=== PATIENT | female | born 1950 | race Caucasian/White ===

== ENCOUNTER 2018-10-20 05:48 | Inpatient (IN) ==
[2018-10-20] MEDS ORDERED: LIDOCAINE 1% 5 ML VIAL ONE (05:53)
[2018-10-20] MEDS ORDERED: ROPIVACAINE 0.5% 30 ML VIAL ONE (05:53)
[2018-10-20] MEDS ORDERED: BUPIVACAINE SPINAL 0.75% 2 ML AMP SPINAL ONE (05:53)
[2018-10-20] MEDS ORDERED: VANCOMYCIN 1,000 MG VIAL ONE (06:14)
[2018-10-20] MEDS ORDERED: ceFAZolin 1,000 MG VIAL ONE (06:14)
[2018-10-20] MEDS ORDERED: GABAPENTIN 400 MG CAPSULE PO ONE (06:25)
[2018-10-20] MEDS ORDERED: ACETAMINOPHEN 500 MG TABLET PO ONE (06:25)
[2018-10-20] MEDS ORDERED: ceFAZolin 1,000 MG in SYRINGE 1 EACH IV ONE (06:30)
[2018-10-20] MEDS ORDERED: VANCOMYCIN INJ 1,000 MG in SODIUM CHLORIDE 0.9% 250 ML IV ONE (06:30)
[2018-10-20] MEDS ORDERED: LACTATED RINGERS 1,000 ML IV SCH (07:00)
[2018-10-20] MEDS ORDERED: MAGNESIUM HYDROXIDE SUSP 30 ML UDCUP PO PRN (07:37)
[2018-10-20] MEDS ORDERED: MORPHINE 4 MG/1 ML VIAL IV PRN ×2 (07:37)
[2018-10-20] MEDS ORDERED: oxyCODONE IR 5 MG TABLET PO PRN ×2 (07:37)
[2018-10-20] MEDS ORDERED: ONDANSETRON 4 MG/2 ML VIAL IV PRN (07:37)
[2018-10-20] MEDS ORDERED: diphenhydrAMINE CAP 25 MG CAPSULE PO PRN (07:37)
[2018-10-20] MEDS ORDERED: GLUCAGON 1 MG VIAL IM PRN (07:39)
[2018-10-20] MEDS ORDERED: DEXTROSE 50% 25 GM/50 ML VIAL IV PRN (07:39)
[2018-10-20] MEDS ORDERED: BACITRACIN OINT 0.9 GM PACK TOP ONE (08:16)
[2018-10-20] MEDS ORDERED: PROPOFOL 200 MG/20 ML VIAL IV ONE (08:58)
[2018-10-20] MEDS ORDERED: PHENYLEPHRINE DRIP 20 MG/250 ML PREMIX IV ONE (08:58)
[2018-10-20] MEDS ORDERED: MIDAZOLAM 2 MG/2 ML VIAL ONE (08:58)
[2018-10-20] MEDS ORDERED: TRANEXAMIC ACID 1,000 MG/10 ML VIAL ONE (08:59)
[2018-10-20] MEDS ORDERED: ePHEDrine 50 MG/ML AMP ONE (08:59)
[2018-10-20] MEDS ORDERED: PHENYLEPHRINE 10 MG/1 ML VIAL IV ONE (08:59)
[2018-10-20] MEDS ORDERED: PROPOFOL 500 MG/50 ML BOTTLE IV ONE (08:59)
[2018-10-20] MEDS ORDERED: SODIUM CHLORIDE 0.9% 100 ML IV ONE (08:59)
[2018-10-20] MEDS: LACTATED RINGERS 1,000 ML IV SCH ×2 (12:50→21:16)
[2018-10-20] MEDS: ceFAZolin 2,000 MG in PREMIX 1 EACH IV SCH ×2 (12:51→22:52)
[2018-10-20] MEDS: KETOROLAC 30 MG/1 ML VIAL IV SCH ×3 (12:52→23:24)
[2018-10-20] MEDS: MULTIVITAMIN (CENTRUM) TABLET PO SCH (12:58)
[2018-10-20] MEDS: LEVOTHYROXINE 100 MCG TABLET PO SCH (12:59)
[2018-10-20] MEDS: PREGABALIN 50 MG CAPSULE PO SCH (12:59)
[2018-10-20] MEDS: FERROUS SULFATE 325 MG TABLET PO SCH (12:59)
[2018-10-20] MEDS: DOCUSATE SODIUM 100 MG CAPSULE PO SCH ×2 (12:59→21:14)
[2018-10-20] MEDS: ACETAMINOPHEN 500 MG TABLET PO SCH ×3 (13:00→23:24)
[2018-10-20] MEDS: CYANOCOBALAMIN 500 MCG TABLET PO SCH (13:00)
[2018-10-20] MEDS: ALLOPURINOL 300 MG TABLET PO SCH (13:00)
[2018-10-20] MEDS: INSULIN LISPRO 100 UNIT/ML SUBCUT SCH ×3 (14:46→21:14)
[2018-10-20] MEDS: GLIMEPIRIDE 4 MG TABLET PO SCH ×2 (18:23→21:15)
[2018-10-20] MEDS: DONEPEZIL 10 MG TABLET PO SCH (21:14)
[2018-10-20] MEDS: SIMVASTATIN 20 MG TABLET PO SCH (21:14)
[2018-10-20] MEDS: MAGNESIUM OXIDE 400 MG TABLET PO SCH (21:14)
[2018-10-20] MEDS: CARVEDILOL 12.5 MG TABLET PO SCH (21:15)
[2018-10-20] MEDS ORDERED: ceFAZolin 2,000 MG in PREMIX 1 EACH IV SCH (23:00)
[2018-10-21] MEDS: LACTATED RINGERS 1,000 ML IV SCH ×2 (02:11→05:06)
[2018-10-21] MEDS: KETOROLAC 30 MG/1 ML VIAL IV SCH (05:03)
[2018-10-21] MEDS: ACETAMINOPHEN 500 MG TABLET PO SCH (05:03)
[2018-10-21 05:47] LABS: Basophils % 0.4 % (0.0-0.8); Eosinophils # 0.2 10*3/uL (0.0-0.87); Eosinophils % 2.8 % (0.00-10.9); Hematocrit 35.9 VOL% (35.7-47.0); Hemoglobin 11.3 GM/DL (12.0-16.0); Immature Granulocytes % 0.3 %; Immature Granulocytes Absolute 0.02 #; Lymphocytes # 1.3 10*3/uL (1.4-4.0); Mean Corpuscular HGB Conc 31.5 GM/DL (32-36); Mean Corpuscular Hemoglobin 29 PG (27-34); Mean Platelet Volume 11.4 FL (9.6-12.0); Monocytes # 0.8 10*3/uL (0.11-0.8); Monocytes % 9.6 % (1.7-12.7); Neutrophils # 5.5 10*3/uL (1.4-7.4); Neutrophils % 69.9 % (38.7-73.9); Platelet Count 127 T/CUMM (130-400); Red Blood Count 3.86 MC/CUMM (3.8-5.5); Red Cell Distribution Width 13.8 % (9.3-17.3); White Blood Count 7.8 T/CUMM (4-12)
[2018-10-21 06:18] LABS: Calcium 8.4 MG/DL (8.5-10.1); Osmolality,Calculated 290.8 MOS/KG (273-304); Osmolality,Calculated 292.8 MOS/KG (273-304); Potassium 4.4 MMOL/L (3.5-5.1); Potassium 4.5 MMOL/L (3.5-5.1)
[2018-10-21] MEDS: INSULIN LISPRO 100 UNIT/ML SUBCUT SCH ×4 (08:05→21:57)
[2018-10-21] MEDS ORDERED: LIRAGLUTIDE SQ SCH (09:00)
[2018-10-21] MEDS ORDERED: NON-FORMULARY MEDICATION (Canagliflozin [Invokana] 100 MG) PO SCH (09:00)
[2018-10-21] MEDS ORDERED: hydrALAZINE 20 MG/1 ML VIAL IV PRN (09:04)
[2018-10-21] MEDS: LEVOTHYROXINE 100 MCG TABLET PO SCH (10:09)
[2018-10-21] MEDS: MULTIVITAMIN (CENTRUM) TABLET PO SCH (10:09)
[2018-10-21] MEDS: MAGNESIUM OXIDE 400 MG TABLET PO SCH ×2 (10:09→21:55)
[2018-10-21] MEDS: CARVEDILOL 12.5 MG TABLET PO SCH ×2 (10:09→21:56)
[2018-10-21] MEDS: CYANOCOBALAMIN 500 MCG TABLET PO SCH (10:09)
[2018-10-21] MEDS: GLIMEPIRIDE 4 MG TABLET PO SCH ×2 (10:10→21:56)
[2018-10-21] MEDS: FERROUS SULFATE 325 MG TABLET PO SCH (10:10)
[2018-10-21] MEDS: amLODIPine 5 MG TABLET PO SCH (10:10)
[2018-10-21] MEDS: APIXABAN 2.5 MG TABLET PO SCH ×2 (10:10→21:56)
[2018-10-21] MEDS: DOCUSATE SODIUM 100 MG CAPSULE PO SCH ×2 (10:11→21:56)
[2018-10-21] MEDS: PREGABALIN 50 MG CAPSULE PO SCH (10:12)
[2018-10-21] MEDS: AMIODARONE 200 MG TABLET PO SCH (10:13)
[2018-10-21] MEDS: ALLOPURINOL 300 MG TABLET PO SCH (10:13)
[2018-10-21] MEDS: CELECOXIB 200 MG CAPSULE PO SCH (12:56)
[2018-10-21] MEDS: SIMVASTATIN 20 MG TABLET PO SCH (21:55)
[2018-10-21] MEDS: DONEPEZIL 10 MG TABLET PO SCH (21:56)
[2018-10-22] MEDS ORDERED: ACETAMINOPHEN 325 MG TABLET PO PRN (04:14)
[2018-10-22 05:08] LABS: Basophils % 0.4 % (0.0-0.8); Eosinophils # 0.4 10*3/uL (0.0-0.87); Eosinophils % 4.2 % (0.00-10.9); Hematocrit 36.3 VOL% (35.7-47.0); Hemoglobin 12.9 GM/DL (12.0-16.0); Immature Granulocytes % 0.5 %; Immature Granulocytes Absolute 0.04 #; Lymphocytes # 1.5 10*3/uL (1.4-4.0); Lymphocytes % 17.7 % (21.3-54.2); Mean Corpuscular HGB Conc 35.5 GM/DL (32-36); Mean Corpuscular Hemoglobin 33 PG (27-34); Mean Corpuscular Volume 93.1 FL (87-102); Mean Platelet Volume 11.1 FL (9.6-12.0); Monocytes # 0.8 10*3/uL (0.11-0.8); Monocytes % 9.7 % (1.7-12.7); Neutrophils # 5.7 10*3/uL (1.4-7.4); Neutrophils % 67.5 % (38.7-73.9); Platelet Count 115 T/CUMM (130-400); White Blood Count 8.5 T/CUMM (4-12)
[2018-10-22] MEDS: DOCUSATE SODIUM 100 MG CAPSULE PO SCH ×2 (09:32→21:08)
[2018-10-22] MEDS: CYANOCOBALAMIN 500 MCG TABLET PO SCH (09:32)
[2018-10-22] MEDS: FERROUS SULFATE 325 MG TABLET PO SCH (09:32)
[2018-10-22] MEDS: APIXABAN 2.5 MG TABLET PO SCH ×2 (09:33→21:08)
[2018-10-22] MEDS: MAGNESIUM OXIDE 400 MG TABLET PO SCH ×2 (09:33→21:06)
[2018-10-22] MEDS: CELECOXIB 200 MG CAPSULE PO SCH (09:33)
[2018-10-22] MEDS: ALLOPURINOL 300 MG TABLET PO SCH (09:33)
[2018-10-22] MEDS: amLODIPine 5 MG TABLET PO SCH (09:33)
[2018-10-22] MEDS: PREGABALIN 50 MG CAPSULE PO SCH (09:33)
[2018-10-22] MEDS: LEVOTHYROXINE 100 MCG TABLET PO SCH (09:33)
[2018-10-22] MEDS: CARVEDILOL 12.5 MG TABLET PO SCH ×2 (09:33→21:08)
[2018-10-22] MEDS: GLIMEPIRIDE 4 MG TABLET PO SCH ×2 (09:33→21:08)
[2018-10-22] MEDS: MULTIVITAMIN (CENTRUM) TABLET PO SCH (09:33)
[2018-10-22] MEDS: INSULIN LISPRO 100 UNIT/ML SUBCUT SCH ×4 (09:51→22:32)
[2018-10-22] MEDS: DONEPEZIL 10 MG TABLET PO SCH (21:06)
[2018-10-22] MEDS: SIMVASTATIN 20 MG TABLET PO SCH (21:06)
[2018-10-23] MEDS: INSULIN LISPRO 100 UNIT/ML SUBCUT SCH ×2 (10:36→13:08)
[2018-10-23] MEDS: PREGABALIN 50 MG CAPSULE PO SCH (10:58)
[2018-10-23] MEDS: CYANOCOBALAMIN 500 MCG TABLET PO SCH (10:59)
[2018-10-23] MEDS: APIXABAN 2.5 MG TABLET PO SCH (10:59)
[2018-10-23] MEDS: MULTIVITAMIN (CENTRUM) TABLET PO SCH (11:01)
[2018-10-23] MEDS: FERROUS SULFATE 325 MG TABLET PO SCH (11:01)
[2018-10-23] MEDS: MAGNESIUM OXIDE 400 MG TABLET PO SCH (11:01)
[2018-10-23] MEDS: AMIODARONE 200 MG TABLET PO SCH (11:02)
[2018-10-23] MEDS: amLODIPine 5 MG TABLET PO SCH (11:02)
[2018-10-23] MEDS: CELECOXIB 200 MG CAPSULE PO SCH (11:03)
[2018-10-23] MEDS: CARVEDILOL 12.5 MG TABLET PO SCH (11:03)
[2018-10-23] MEDS: ALLOPURINOL 300 MG TABLET PO SCH (11:03)
[2018-10-23] MEDS: LEVOTHYROXINE 100 MCG TABLET PO SCH (11:03)
[2018-10-23] MEDS: GLIMEPIRIDE 4 MG TABLET PO SCH (11:03)
[2018-10-23 12:16] VITALS: BP 142/72
[2018-10-23] MEDS: DOCUSATE SODIUM 100 MG CAPSULE PO SCH (12:28)
== END 2018-10-23 15:53 | disposition home or self-care (01) | DRG 470 ==
LOC: N.OR 05:48 → N.SDSINP 05:49 → N.3E 08:50
PROVIDERS: ADMIT Orthopaedic Surgery; ATTEND Orthopaedic Surgery

== ENCOUNTER 2019-09-16 18:14 | Inpatient (IN) ==
[2019-09-16] MEDS ORDERED: FUROSEMIDE 100 MG/10 ML VIAL IV STA (19:31)
[2019-09-16 19:57] LABS: Basophils % 0.4 % (0.0-0.8); Eosinophils # 0.2 10*3/uL (0.0-0.87); Eosinophils % 2.4 % (0.00-10.9); Hemoglobin 11.8 GM/DL (12.0-16.0); Immature Granulocytes % 0.6 %; Immature Granulocytes Absolute 0.05 #; Lymphocytes # 1.1 10*3/uL (1.4-4.0); Lymphocytes % 13.1 % (21.3-54.2); Mean Corpuscular HGB Conc 30.3 GM/DL (32-36); Mean Corpuscular Volume 101.6 FL (87-102); Mean Platelet Volume 10.5 FL (9.6-12.0); Monocytes % 5.6 % (1.7-12.7); Neutrophils % 77.9 % (38.7-73.9); Platelet Count 153 T/CUMM (130-400); Red Blood Count 3.84 MC/CUMM (3.8-5.5); Red Cell Distribution Width 15.9 % (9.3-17.3); White Blood Count 8.1 T/CUMM (4-12)
[2019-09-16 20:02] LABS: Albumin 3.1 G/DL (3.4-5.0); Bilirubin,Total 0.9 MG/DL (0.2-1.0); Calcium 10.2 MG/DL (8.5-10.1); Osmolality,Calculated 304.6 MOS/KG (273-304); Total Protein 7.3 G/DL (6.4-8.3)
[2019-09-16] MEDS ORDERED: GLUCAGON 1 MG VIAL IM PRN (22:22)
[2019-09-16] MEDS ORDERED: DEXTROSE 50% 25 GM/50 ML VIAL IV PRN (22:22)
[2019-09-17] MEDS: INSULIN GLARGINE 100 UNIT/ML SUBCUT SCH ×2 (01:00→21:53)
[2019-09-17] MEDS: cycloSPORINE OPH EMUL 1 VIAL BOTH EYES SCH ×3 (01:00→22:05)
[2019-09-17] MEDS: INSULIN REGULAR 100 UNIT/ML SUBCUT SCH ×5 (01:00→21:54)
[2019-09-17 03:04] LABS: Apearance,Urine CLEAR (Clear); Bilirubin,Urine Negative (Negative); Blood, Urine Negative (Negative); Glucose,Urine (UA) Negative (Negative); Ketones,Urine Negative (Negative); Nitrite,Urine Negative (Negative); Protein,Urine 30 MG/DL; RBC,Urine 1 /HPF (0-4); Urine Color Colorless (Yellow); Urine Specific Gravity 1.005 (1.001-1.035); Urine Urobilinogen < 2.0 EU/DL (0.2-1.0); WBC,Urine <1 /HPF (0-6)
[2019-09-17 05:30] LABS: Calcium 10.1 MG/DL (8.5-10.1); Osmolality,Calculated 298.6 MOS/KG (273-304)
[2019-09-17] MEDS: LEVOTHYROXINE 100 MCG TABLET PO SCH (06:47)
[2019-09-17] MEDS ORDERED: MAGNESIUM SULF RIDER 4 GM in PREMIX 1 EACH IV PRN (07:30)
[2019-09-17] MEDS ORDERED: MAGNESIUM SULF RIDER 2 GM in PREMIX 1 EACH IV PRN (07:30)
[2019-09-17] MEDS: GLIMEPIRIDE 4 MG TABLET PO SCH ×2 (08:20→16:12)
[2019-09-17] MEDS ORDERED: TORSEMIDE 20 MG TABLET PO SCH (09:00)
[2019-09-17] MEDS ORDERED: AMIODARONE 200 MG TABLET PO SCH (09:00)
[2019-09-17] MEDS ORDERED: PREDNISOLONE ACETATE RIGHT EYE SCH (09:00)
[2019-09-17] MEDS: traMADol 50 MG TABLET PO SCH (09:05)
[2019-09-17] MEDS: MULTIVITAMIN (CENTRUM) TABLET PO SCH (09:05)
[2019-09-17] MEDS: PREGABALIN 75 MG CAPSULE PO SCH (09:05)
[2019-09-17] MEDS: MAGNESIUM OXIDE 400 MG TABLET PO SCH ×2 (09:05→21:53)
[2019-09-17] MEDS: AMIODARONE 200 MG TABLET PO SCH (09:06)
[2019-09-17] MEDS: predniSONE 5 MG TABLET PO SCH (09:07)
[2019-09-17] MEDS: carvediloL 12.5 MG TABLET PO SCH ×2 (09:07→16:12)
[2019-09-17] MEDS: APIXABAN 5 MG TABLET PO SCH ×2 (09:07→21:53)
[2019-09-17] MEDS: amLODIPine 5 MG TABLET PO SCH (09:08)
[2019-09-17] MEDS: FUROSEMIDE 40 MG/4 ML VIAL IV SCH ×2 (09:08→16:12)
[2019-09-17] MEDS: ALLOPURINOL 100 MG TABLET PO SCH (09:08)
[2019-09-17] MEDS: FERROUS SULFATE 325 MG TABLET PO SCH (09:08)
[2019-09-17] MEDS ORDERED: hydrALAZINE 20 MG/1 ML VIAL IV PRN (12:56)
[2019-09-17] MEDS ORDERED: ALBUTEROL/IPRATROPIUM 3 ML NEB RESP TX PRN (12:56)
[2019-09-17] MEDS: PIPERACILLIN/TAZOBACTAM 3,375 MG in SODIUM CHLORIDE 0.9% 100 ML IV SCH ×2 (13:24→21:55)
[2019-09-17] MEDS: methylPREDNISolone SOD SUC 40 MG/1 ML VIAL IV SCH (13:25)
[2019-09-17] MEDS: ALBUTEROL/IPRATROPIUM 3 ML NEB RESP TX SCH ×3 (15:22→23:57)
[2019-09-17] MEDS: DESITIN 4OZ/NYSTATIN 15 GRAM MIXTURE PASTE TOP SCH ×2 (16:12→21:53)
[2019-09-17] MEDS: DONEPEZIL 10 MG TABLET PO SCH (21:53)
[2019-09-17] MEDS: SIMVASTATIN 20 MG TABLET PO SCH (21:53)
[2019-09-18] MEDS: methylPREDNISolone SOD SUC 40 MG/1 ML VIAL IV SCH ×2 (00:19→12:49)
[2019-09-18] MEDS: ALBUTEROL/IPRATROPIUM 3 ML NEB RESP TX SCH ×6 (03:00→23:25)
[2019-09-18 04:40] LABS: Basophils % 0.2 % (0.0-0.8); Hematocrit 38.9 VOL% (35.7-47.0); Hemoglobin 12.4 GM/DL (12.0-16.0); Immature Granulocytes % 0.4 %; Immature Granulocytes Absolute 0.02 #; Lymphocytes # 0.8 10*3/uL (1.4-4.0); Mean Corpuscular HGB Conc 31.9 GM/DL (32-36); Mean Platelet Volume 10.7 FL (9.6-12.0); Monocytes % 0.9 % (1.7-12.7); Neutrophils % 84.5 % (38.7-73.9); Platelet Count 170 T/CUMM (130-400); Red Blood Count 4.01 MC/CUMM (3.8-5.5); Red Cell Distribution Width 15.3 % (9.3-17.3); White Blood Count 5.4 T/CUMM (4-12)
[2019-09-18 05:05] LABS: Calcium 10.3 MG/DL (8.5-10.1); Osmolality,Calculated 295.4 MOS/KG (273-304)
[2019-09-18] MEDS: PIPERACILLIN/TAZOBACTAM 3,375 MG in SODIUM CHLORIDE 0.9% 100 ML IV SCH ×3 (05:45→21:39)
[2019-09-18] MEDS: LEVOTHYROXINE 100 MCG TABLET PO SCH (05:45)
[2019-09-18 05:58] LABS: Anisocytosis Slight; Macrocytosis Slight; Platelet Estimate Normal
[2019-09-18 06:00] LABS: Ovalocytes Slight; Stomatocytes Slight
[2019-09-18] MEDS: carvediloL 12.5 MG TABLET PO SCH (08:11)
[2019-09-18] MEDS: INSULIN REGULAR 100 UNIT/ML SUBCUT SCH ×4 (08:13→21:23)
[2019-09-18] MEDS: GLIMEPIRIDE 4 MG TABLET PO SCH ×2 (08:13→16:55)
[2019-09-18] MEDS ORDERED: NON-FORMULARY MEDICATION RIGHT EYE SCH (09:00)
[2019-09-18] MEDS: AMIODARONE 200 MG TABLET PO SCH (09:19)
[2019-09-18] MEDS: MULTIVITAMIN (CENTRUM) TABLET PO SCH (09:19)
[2019-09-18] MEDS: PREGABALIN 75 MG CAPSULE PO SCH (09:19)
[2019-09-18] MEDS: cycloSPORINE OPH EMUL 1 VIAL BOTH EYES SCH ×2 (09:19→21:25)
[2019-09-18] MEDS: KETOROLAC 0.5% OPH SOLN 5 ML BOTTLE RIGHT EYE SCH (09:20)
[2019-09-18] MEDS: traMADol 50 MG TABLET PO SCH (09:20)
[2019-09-18] MEDS: DESITIN 4OZ/NYSTATIN 15 GRAM MIXTURE PASTE TOP SCH ×2 (09:20→21:24)
[2019-09-18] MEDS: ALLOPURINOL 100 MG TABLET PO SCH (09:20)
[2019-09-18] MEDS: OFLOXACIN 0.3% OPH SOLN 5 ML BOTTLE RIGHT EYE SCH (09:20)
[2019-09-18] MEDS: MAGNESIUM OXIDE 400 MG TABLET PO SCH ×2 (09:20→21:23)
[2019-09-18] MEDS: prednisoLONE ACETATE 1% OPH SUSP 5 ML BOTTLE LEFT EYE SCH ×3 (09:20→16:08)
[2019-09-18] MEDS: FERROUS SULFATE 325 MG TABLET PO SCH (09:21)
[2019-09-18] MEDS: predniSONE 5 MG TABLET PO SCH (09:21)
[2019-09-18] MEDS: amLODIPine 5 MG TABLET PO SCH (09:21)
[2019-09-18] MEDS: APIXABAN 5 MG TABLET PO SCH ×2 (09:21→21:23)
[2019-09-18] MEDS: FUROSEMIDE 40 MG/4 ML VIAL IV SCH (09:22)
[2019-09-18] MEDS ORDERED: prednisoLONE ACETATE 1% OPH SUSP 5 ML BOTTLE RIGHT EYE SCH (13:00)
[2019-09-18] MEDS: carvediloL 6.25 MG TABLET PO SCH (16:55)
[2019-09-18] MEDS: DONEPEZIL 10 MG TABLET PO SCH (21:23)
[2019-09-18] MEDS: SIMVASTATIN 20 MG TABLET PO SCH (21:23)
[2019-09-18] MEDS: INSULIN GLARGINE 100 UNIT/ML SUBCUT SCH (21:24)
[2019-09-19] MEDS: methylPREDNISolone SOD SUC 40 MG/1 ML VIAL IV SCH ×2 (00:56→12:16)
[2019-09-19] MEDS: ALBUTEROL/IPRATROPIUM 3 ML NEB RESP TX SCH ×6 (02:51→23:13)
[2019-09-19 04:43] LABS: Hematocrit 35.5 VOL% (35.7-47.0); Hemoglobin 11.5 GM/DL (12.0-16.0); Immature Granulocytes % 0.6 %; Immature Granulocytes Absolute 0.04 #; Lymphocytes # 0.7 10*3/uL (1.4-4.0); Lymphocytes % 9.3 % (21.3-54.2); Mean Corpuscular HGB Conc 32.4 GM/DL (32-36); Mean Corpuscular Volume 95.7 FL (87-102); Mean Platelet Volume 10.8 FL (9.6-12.0); Monocytes % 1.7 % (1.7-12.7); Neutrophils % 88.4 % (38.7-73.9); Platelet Count 178 T/CUMM (130-400); Red Blood Count 3.71 MC/CUMM (3.8-5.5)
[2019-09-19 04:58] LABS: Calcium 10.2 MG/DL (8.5-10.1); Osmolality,Calculated 294.7 MOS/KG (273-304)
[2019-09-19] MEDS: PIPERACILLIN/TAZOBACTAM 3,375 MG in SODIUM CHLORIDE 0.9% 100 ML IV SCH ×3 (05:10→20:50)
[2019-09-19] MEDS: LEVOTHYROXINE 112 MCG TABLET PO SCH (05:10)
[2019-09-19 07:17] LABS: Lymphocytes 8 % (20-55); Platelet Estimate Adequate; Polychromasia Slight; Segmented Neutrophils 92 % (50-85); Total Cells Counted 100
[2019-09-19 07:19] LABS: Macrocytosis Slight; Stomatocytes Slight
[2019-09-19 07:20] LABS: Ovalocytes Few
[2019-09-19 07:22] LABS: Spherocytes Few
[2019-09-19] MEDS: INSULIN REGULAR 100 UNIT/ML SUBCUT SCH ×4 (08:36→20:51)
[2019-09-19] MEDS: GLIMEPIRIDE 4 MG TABLET PO SCH ×2 (08:36→16:03)
[2019-09-19] MEDS: carvediloL 6.25 MG TABLET PO SCH (08:42)
[2019-09-19] MEDS ORDERED: FUROSEMIDE 40 MG/4 ML VIAL IV SCH (09:00)
[2019-09-19] MEDS: AMIODARONE 200 MG TABLET PO SCH (09:48)
[2019-09-19] MEDS: cycloSPORINE OPH EMUL 1 VIAL BOTH EYES SCH ×2 (09:48→20:49)
[2019-09-19] MEDS: prednisoLONE ACETATE 1% OPH SUSP 5 ML BOTTLE RIGHT EYE SCH (09:48)
[2019-09-19] MEDS: MAGNESIUM OXIDE 400 MG TABLET PO SCH ×2 (09:49→20:47)
[2019-09-19] MEDS: ALLOPURINOL 100 MG TABLET PO SCH (09:49)
[2019-09-19] MEDS: FERROUS SULFATE 325 MG TABLET PO SCH (09:49)
[2019-09-19] MEDS: carvediloL 3.125 MG TABLET PO SCH ×3 (09:50→20:47)
[2019-09-19] MEDS: MULTIVITAMIN (CENTRUM) TABLET PO SCH (09:50)
[2019-09-19] MEDS: amLODIPine 5 MG TABLET PO SCH (09:50)
[2019-09-19] MEDS: predniSONE 5 MG TABLET PO SCH (09:50)
[2019-09-19] MEDS: APIXABAN 5 MG TABLET PO SCH ×2 (09:50→20:47)
[2019-09-19] MEDS: traMADol 50 MG TABLET PO SCH (09:50)
[2019-09-19] MEDS: PREGABALIN 75 MG CAPSULE PO SCH (09:50)
[2019-09-19] MEDS: KETOROLAC 0.5% OPH SOLN 5 ML BOTTLE RIGHT EYE SCH (09:51)
[2019-09-19] MEDS: DESITIN 4OZ/NYSTATIN 15 GRAM MIXTURE PASTE TOP SCH ×2 (09:52→20:49)
[2019-09-19] MEDS: OFLOXACIN 0.3% OPH SOLN 5 ML BOTTLE RIGHT EYE SCH (09:52)
[2019-09-19] MEDS: DOCUSATE SODIUM 100 MG CAPSULE PO SCH ×2 (12:30→20:47)
[2019-09-19] MEDS: FUROSEMIDE 40 MG TABLET PO SCH (16:03)
[2019-09-19] MEDS: SIMVASTATIN 20 MG TABLET PO SCH (20:46)
[2019-09-19] MEDS: DONEPEZIL 10 MG TABLET PO SCH (20:47)
[2019-09-19] MEDS: EYE DROPS RIGHT EYE SCH (20:51)
[2019-09-19] MEDS: INSULIN GLARGINE 100 UNIT/ML SUBCUT SCH (20:52)
[2019-09-20] MEDS: methylPREDNISolone SOD SUC 40 MG/1 ML VIAL IV SCH ×2 (00:44→13:01)
[2019-09-20] MEDS: ALBUTEROL/IPRATROPIUM 3 ML NEB RESP TX SCH ×5 (03:51→20:25)
[2019-09-20 04:41] LABS: Hematocrit 35.5 VOL% (35.7-47.0); Hemoglobin 11.2 GM/DL (12.0-16.0); Immature Granulocytes % 0.3 %; Immature Granulocytes Absolute 0.02 #; Lymphocytes # 0.8 10*3/uL (1.4-4.0); Lymphocytes % 10.5 % (21.3-54.2); Mean Corpuscular HGB Conc 31.5 GM/DL (32-36); Mean Corpuscular Volume 96.7 FL (87-102); Mean Platelet Volume 10.7 FL (9.6-12.0); Neutrophils % 86.2 % (38.7-73.9); Platelet Count 169 T/CUMM (130-400); Red Blood Count 3.67 MC/CUMM (3.8-5.5); Red Cell Distribution Width 15.1 % (9.3-17.3); White Blood Count 7.5 T/CUMM (4-12)
[2019-09-20 04:57] LABS: Calcium 10.3 MG/DL (8.5-10.1); Osmolality,Calculated 302.3 MOS/KG (273-304)
[2019-09-20] MEDS: PIPERACILLIN/TAZOBACTAM 3,375 MG in SODIUM CHLORIDE 0.9% 100 ML IV SCH ×3 (05:11→21:00)
[2019-09-20] MEDS: LEVOTHYROXINE 112 MCG TABLET PO SCH (05:11)
[2019-09-20] MEDS: AMIODARONE 200 MG TABLET PO SCH (08:17)
[2019-09-20] MEDS: GLIMEPIRIDE 4 MG TABLET PO SCH ×2 (08:17→15:39)
[2019-09-20] MEDS: FERROUS SULFATE 325 MG TABLET PO SCH (08:17)
[2019-09-20] MEDS: MAGNESIUM OXIDE 400 MG TABLET PO SCH ×2 (08:17→21:00)
[2019-09-20] MEDS: MULTIVITAMIN (CENTRUM) TABLET PO SCH (08:18)
[2019-09-20] MEDS: ALLOPURINOL 100 MG TABLET PO SCH (08:18)
[2019-09-20] MEDS: PREGABALIN 75 MG CAPSULE PO SCH (08:18)
[2019-09-20] MEDS: amLODIPine 5 MG TABLET PO SCH (08:18)
[2019-09-20] MEDS: DOCUSATE SODIUM 100 MG CAPSULE PO SCH ×2 (08:18→21:00)
[2019-09-20] MEDS: APIXABAN 5 MG TABLET PO SCH ×2 (08:18→21:00)
[2019-09-20] MEDS: carvediloL 3.125 MG TABLET PO SCH ×2 (08:18→21:00)
[2019-09-20] MEDS: FUROSEMIDE 40 MG TABLET PO SCH (08:19)
[2019-09-20] MEDS: INSULIN REGULAR 100 UNIT/ML SUBCUT SCH ×4 (08:19→21:01)
[2019-09-20] MEDS: KETOROLAC 0.5% OPH SOLN 5 ML BOTTLE RIGHT EYE SCH (08:20)
[2019-09-20] MEDS: OFLOXACIN 0.3% OPH SOLN 5 ML BOTTLE RIGHT EYE SCH (08:21)
[2019-09-20] MEDS: predniSONE 5 MG TABLET PO SCH (08:21)
[2019-09-20] MEDS: DESITIN 4OZ/NYSTATIN 15 GRAM MIXTURE PASTE TOP SCH ×2 (08:22→21:08)
[2019-09-20] MEDS: EYE DROPS RIGHT EYE SCH ×2 (08:22→21:09)
[2019-09-20] MEDS: traMADol 50 MG TABLET PO SCH (08:22)
[2019-09-20] MEDS: cycloSPORINE OPH EMUL 1 VIAL BOTH EYES SCH ×2 (08:22→21:00)
[2019-09-20] MEDS: prednisoLONE ACETATE 1% OPH SUSP 5 ML BOTTLE RIGHT EYE SCH (08:22)
[2019-09-20] MEDS ORDERED: OFLOXACIN 0.3% OPH SOLN 5 ML BOTTLE RIGHT EYE SCH (09:00)
[2019-09-20] MEDS ORDERED: KETOROLAC RIGHT EYE SCH (09:00)
[2019-09-20] MEDS: FUROSEMIDE 20 MG TABLET PO SCH (15:39)
[2019-09-20] MEDS: DONEPEZIL 10 MG TABLET PO SCH (21:00)
[2019-09-20] MEDS: SIMVASTATIN 20 MG TABLET PO SCH (21:00)
[2019-09-20] MEDS: INSULIN GLARGINE 100 UNIT/ML SUBCUT SCH (21:01)
[2019-09-21] MEDS: ALBUTEROL/IPRATROPIUM 3 ML NEB RESP TX SCH ×6 (00:08→20:29)
[2019-09-21] MEDS: methylPREDNISolone SOD SUC 40 MG/1 ML VIAL IV SCH (01:02)
[2019-09-21 03:54] LABS: Hematocrit 35.5 VOL% (35.7-47.0); Hemoglobin 11.2 GM/DL (12.0-16.0); Immature Granulocytes % 0.6 %; Immature Granulocytes Absolute 0.04 #; Lymphocytes # 0.8 10*3/uL (1.4-4.0); Lymphocytes % 12.4 % (21.3-54.2); Mean Corpuscular HGB Conc 31.5 GM/DL (32-36); Mean Corpuscular Volume 96.5 FL (87-102); Monocytes % 6.3 % (1.7-12.7); Neutrophils % 80.7 % (38.7-73.9); Platelet Count 169 T/CUMM (130-400); Red Blood Count 3.68 MC/CUMM (3.8-5.5); Red Cell Distribution Width 15.5 % (9.3-17.3); White Blood Count 6.6 T/CUMM (4-12)
[2019-09-21 04:25] LABS: Calcium 10.1 MG/DL (8.5-10.1); Osmolality,Calculated 304.4 MOS/KG (273-304)
[2019-09-21] MEDS: PIPERACILLIN/TAZOBACTAM 3,375 MG in SODIUM CHLORIDE 0.9% 100 ML IV SCH ×3 (05:11→21:49)
[2019-09-21] MEDS: LEVOTHYROXINE 112 MCG TABLET PO SCH (05:12)
[2019-09-21] MEDS: MULTIVITAMIN (CENTRUM) TABLET PO SCH (08:59)
[2019-09-21] MEDS: GLIMEPIRIDE 4 MG TABLET PO SCH ×2 (09:02→17:26)
[2019-09-21] MEDS: MAGNESIUM OXIDE 400 MG TABLET PO SCH ×2 (09:02→21:54)
[2019-09-21] MEDS: AMIODARONE 200 MG TABLET PO SCH (09:03)
[2019-09-21] MEDS: traMADol 50 MG TABLET PO SCH (09:03)
[2019-09-21] MEDS: ALLOPURINOL 100 MG TABLET PO SCH (09:03)
[2019-09-21] MEDS: FERROUS SULFATE 325 MG TABLET PO SCH (09:04)
[2019-09-21] MEDS: amLODIPine 5 MG TABLET PO SCH (09:04)
[2019-09-21] MEDS: predniSONE 5 MG TABLET PO SCH (09:04)
[2019-09-21] MEDS: DOCUSATE SODIUM 100 MG CAPSULE PO SCH ×2 (09:04→21:53)
[2019-09-21] MEDS: FUROSEMIDE 20 MG TABLET PO SCH ×2 (09:04→17:27)
[2019-09-21] MEDS: PREGABALIN 75 MG CAPSULE PO SCH (09:04)
[2019-09-21] MEDS: APIXABAN 5 MG TABLET PO SCH ×2 (09:05→21:54)
[2019-09-21] MEDS: carvediloL 3.125 MG TABLET PO SCH ×2 (09:05→21:53)
[2019-09-21] MEDS: OFLOXACIN 0.3% OPH SOLN 5 ML BOTTLE RIGHT EYE SCH (09:06)
[2019-09-21] MEDS: KETOROLAC 0.5% OPH SOLN 5 ML BOTTLE RIGHT EYE SCH (09:06)
[2019-09-21] MEDS: prednisoLONE ACETATE 1% OPH SUSP 5 ML BOTTLE RIGHT EYE SCH (09:06)
[2019-09-21] MEDS: cycloSPORINE OPH EMUL 1 VIAL BOTH EYES SCH ×2 (09:07→21:54)
[2019-09-21] MEDS: DESITIN 4OZ/NYSTATIN 15 GRAM MIXTURE PASTE TOP SCH ×2 (09:07→21:54)
[2019-09-21] MEDS: EYE DROPS RIGHT EYE SCH ×2 (09:08→21:54)
[2019-09-21] MEDS: INSULIN REGULAR 100 UNIT/ML SUBCUT SCH ×4 (09:56→21:52)
[2019-09-21] MEDS ORDERED: guaiFENesin 200 MG/10 ML UDCUP PO PRN (12:09)
[2019-09-21] MEDS: INSULIN GLARGINE 100 UNIT/ML SUBCUT SCH (21:52)
[2019-09-21] MEDS: SIMVASTATIN 20 MG TABLET PO SCH (21:54)
[2019-09-21] MEDS: DONEPEZIL 10 MG TABLET PO SCH (21:54)
[2019-09-22] MEDS: ALBUTEROL/IPRATROPIUM 3 ML NEB RESP TX SCH ×5 (00:37→16:03)
[2019-09-22] MEDS: LEVOTHYROXINE 112 MCG TABLET PO SCH (05:29)
[2019-09-22] MEDS: PIPERACILLIN/TAZOBACTAM 3,375 MG in SODIUM CHLORIDE 0.9% 100 ML IV SCH ×2 (05:30→13:16)
[2019-09-22 06:19] LABS: Basophils % 0.3 % (0.0-0.8); Eosinophils # 0.1 10*3/uL (0.0-0.87); Eosinophils % 1.7 % (0.00-10.9); Hematocrit 40.1 VOL% (35.7-47.0); Hemoglobin 12.5 GM/DL (12.0-16.0); Immature Granulocytes Absolute 0.07 #; Lymphocytes # 1.5 10*3/uL (1.4-4.0); Lymphocytes % 20.7 % (21.3-54.2); Mean Corpuscular HGB Conc 31.2 GM/DL (32-36); Mean Corpuscular Volume 98.3 FL (87-102); Mean Platelet Volume 10.5 FL (9.6-12.0); Monocytes % 11.1 % (1.7-12.7); Neutrophils % 65.2 % (38.7-73.9); Platelet Count 160 T/CUMM (130-400); Red Blood Count 4.08 MC/CUMM (3.8-5.5); Red Cell Distribution Width 15.9 % (9.3-17.3)
[2019-09-22 07:04] LABS: Calcium 10.7 MG/DL (8.5-10.1); Osmolality,Calculated 304.7 MOS/KG (273-304)
[2019-09-22] MEDS: INSULIN REGULAR 100 UNIT/ML SUBCUT SCH ×3 (08:18→17:04)
[2019-09-22] MEDS: predniSONE 5 MG TABLET PO SCH (08:32)
[2019-09-22] MEDS: AMIODARONE 200 MG TABLET PO SCH (08:33)
[2019-09-22] MEDS: DOCUSATE SODIUM 100 MG CAPSULE PO SCH (08:33)
[2019-09-22] MEDS: traMADol 50 MG TABLET PO SCH (08:33)
[2019-09-22] MEDS: PREGABALIN 75 MG CAPSULE PO SCH (08:33)
[2019-09-22] MEDS: amLODIPine 5 MG TABLET PO SCH (08:33)
[2019-09-22] MEDS: FERROUS SULFATE 325 MG TABLET PO SCH (08:33)
[2019-09-22] MEDS: GLIMEPIRIDE 4 MG TABLET PO SCH ×2 (08:34→17:04)
[2019-09-22] MEDS: ALLOPURINOL 100 MG TABLET PO SCH (08:34)
[2019-09-22] MEDS: FUROSEMIDE 20 MG TABLET PO SCH (08:34)
[2019-09-22] MEDS: carvediloL 3.125 MG TABLET PO SCH (08:34)
[2019-09-22] MEDS: APIXABAN 5 MG TABLET PO SCH (08:35)
[2019-09-22] MEDS: MAGNESIUM OXIDE 400 MG TABLET PO SCH (08:35)
[2019-09-22] MEDS: MULTIVITAMIN (CENTRUM) TABLET PO SCH (08:57)
[2019-09-22] MEDS: KETOROLAC 0.5% OPH SOLN 5 ML BOTTLE RIGHT EYE SCH (08:58)
[2019-09-22] MEDS: prednisoLONE ACETATE 1% OPH SUSP 5 ML BOTTLE RIGHT EYE SCH (08:58)
[2019-09-22] MEDS: OFLOXACIN 0.3% OPH SOLN 5 ML BOTTLE RIGHT EYE SCH (08:58)
[2019-09-22] MEDS: DESITIN 4OZ/NYSTATIN 15 GRAM MIXTURE PASTE TOP SCH (08:59)
[2019-09-22] MEDS: cycloSPORINE OPH EMUL 1 VIAL BOTH EYES SCH (08:59)
[2019-09-22] MEDS ORDERED: methylPREDNISolone SOD SUC 40 MG/1 ML VIAL IV SCH (09:00)
[2019-09-22] MEDS: EYE DROPS RIGHT EYE SCH (09:03)
[2019-09-22 16:24] VITALS: BP 133/67
[2019-09-22] MEDS ORDERED: carvediloL 6.25 MG TABLET PO SCH (21:00)
== END 2019-09-22 17:14 | disposition home health service (06) | DRG 291 ==
LOC: N.ED 18:14 → N.EDINP 18:14 → N.ICU 20:40 → N.TELEN 09-19 13:36
PROVIDERS: ADMIT Family Medicine; ATTEND Family Medicine

== ENCOUNTER 2019-10-27 08:33 | Observation (INO) ==
[2019-10-27] MEDS ORDERED: ALBUTEROL 2.5 MG/3 ML NEB RESP TX STA (08:59)
[2019-10-27] MEDS ORDERED: FUROSEMIDE 100 MG/10 ML VIAL IV STA (08:59)
[2019-10-27 09:56] LABS: Basophils # 0.1 10*3/uL (0.0-0.2); Basophils % 0.5 % (0.0-0.8); Eosinophils # 0.2 10*3/uL (0.0-0.87); Eosinophils % 1.5 % (0.00-10.9); Hematocrit 39.2 VOL% (35.7-47.0); Hemoglobin 12.3 GM/DL (12.0-16.0); Immature Granulocytes % 0.9 %; Immature Granulocytes Absolute 0.12 #; Lymphocytes # 1.1 10*3/uL (1.4-4.0); Mean Corpuscular HGB Conc 31.4 GM/DL (32-36); Mean Platelet Volume 9.9 FL (9.6-12.0); Monocytes % 8.8 % (1.7-12.7); Neutrophils % 79.3 % (38.7-73.9); Platelet Count 193 T/CUMM (130-400); Red Blood Count 4.04 MC/CUMM (3.8-5.5); Red Cell Distribution Width 15.5 % (9.3-17.3); White Blood Count 12.7 T/CUMM (4-12)
[2019-10-27 10:23] LABS: Amorphous Crystals,Urine Occasional /HPF (Few); Apearance,Urine CLEAR (Clear); Bilirubin,Urine Negative (Negative); Blood, Urine Negative (Negative); Glucose,Urine (UA) 150 mg/dL (Negative); Ketones,Urine Negative (Negative); Mucus,Urine Occasional /LPF (Occasional); Nitrite,Urine Negative (Negative); Protein,Urine >=500 MG/DL; RBC,Urine 2 /HPF (0-4); Urine Color Yellow (Yellow); Urine Specific Gravity 1.016 (1.001-1.035); Urine Urobilinogen < 2.0 EU/DL (0.2-1.0)
[2019-10-27 10:40] LABS: Osmolality,Calculated 294.1 MOS/KG (273-304); Total Protein 6.7 G/DL (6.4-8.3)
[2019-10-27 11:32] LABS: Calcium 9.4 MG/DL (8.5-10.1)
[2019-10-27] MEDS ORDERED: ONDANSETRON 4 MG/2 ML VIAL IV PRN (12:43)
[2019-10-27] MEDS ORDERED: ACETAMINOPHEN 325 MG TABLET PO PRN (12:43)
[2019-10-27] MEDS ORDERED: SODIUM CHLORIDE 0.9% 1,000 ML IV SCH (12:43)
[2019-10-27] MEDS ORDERED: MAGNESIUM SULF RIDER 4 GM in PREMIX 1 EACH IV PRN (13:09)
[2019-10-27] MEDS ORDERED: MAGNESIUM SULF RIDER 2 GM in PREMIX 1 EACH IV PRN (13:09)
[2019-10-27] MEDS ORDERED: GLUCAGON 1 MG VIAL IM PRN (13:09)
[2019-10-27] MEDS ORDERED: DEXTROSE 10% 25 GM/250 ML BAG IV PRN (13:09)
[2019-10-27] MEDS ORDERED: hydrALAZINE 20 MG/1 ML VIAL IV PRN (13:12)
[2019-10-27] MEDS ORDERED: ALBUTEROL/IPRATROPIUM 3 ML NEB RESP TX PRN (13:12)
[2019-10-27] MEDS ORDERED: cefTRIAXone 1,000 MG in SYRINGE 1 EACH IV ONE (13:13)
[2019-10-27] MEDS ORDERED: AMIODARONE 200 MG TABLET PO SCH (13:30)
[2019-10-27] MEDS ORDERED: METHOTREXATE 2.5 MG TABLET PO SCH (13:30)
[2019-10-27] MEDS: ALBUTEROL/IPRATROPIUM 3 ML NEB RESP TX SCH ×3 (14:15→23:46)
[2019-10-27] MEDS ORDERED: ALBUTEROL 2.5 MG/3 ML NEB RESP TX PRN (15:00)
[2019-10-27] MEDS: INSULIN LISPRO 100 UNIT/ML SUBCUT SCH ×2 (17:08→22:23)
[2019-10-27] MEDS: DOCUSATE SODIUM 100 MG CAPSULE PO SCH (20:18)
[2019-10-27] MEDS: carvediloL 6.25 MG TABLET PO SCH (20:18)
[2019-10-27] MEDS: APIXABAN 5 MG TABLET PO SCH (20:18)
[2019-10-27] MEDS ORDERED: DONEPEZIL 10 MG TABLET PO SCH (21:00)
[2019-10-28] MEDS: ALBUTEROL/IPRATROPIUM 3 ML NEB RESP TX SCH ×3 (03:36→10:51)
[2019-10-28 05:11] LABS: Basophils # 0.1 10*3/uL (0.0-0.2); Basophils % 0.5 % (0.0-0.8); Eosinophils # 0.2 10*3/uL (0.0-0.87); Eosinophils % 1.7 % (0.00-10.9); Hematocrit 36.4 VOL% (35.7-47.0); Hemoglobin 11.6 GM/DL (12.0-16.0); Immature Granulocytes % 0.5 %; Immature Granulocytes Absolute 0.05 #; Lymphocytes # 1.3 10*3/uL (1.4-4.0); Lymphocytes % 14.2 % (21.3-54.2); Mean Corpuscular HGB Conc 31.9 GM/DL (32-36); Mean Corpuscular Volume 95.5 FL (87-102); Mean Platelet Volume 10.3 FL (9.6-12.0); Monocytes % 11.1 % (1.7-12.7); Platelet Count 207 T/CUMM (130-400); Red Blood Count 3.81 MC/CUMM (3.8-5.5); Red Cell Distribution Width 15.4 % (9.3-17.3); White Blood Count 9.4 T/CUMM (4-12)
[2019-10-28 05:43] LABS: Calcium 10.2 MG/DL (8.5-10.1); Osmolality,Calculated 286.1 MOS/KG (273-304); Thyroid Stimulating Hormone 7.55 uIU/ml (0.358-3.74)
[2019-10-28] MEDS ORDERED: LEVOTHYROXINE 100 MCG TABLET PO SCH (06:30)
[2019-10-28] MEDS: INSULIN LISPRO 100 UNIT/ML SUBCUT SCH ×3 (08:28→16:23)
[2019-10-28] MEDS ORDERED: ALLOPURINOL 300 MG TABLET PO SCH (09:00)
[2019-10-28] MEDS ORDERED: traMADol 50 MG TABLET PO SCH (09:00)
[2019-10-28] MEDS ORDERED: PREGABALIN 75 MG CAPSULE PO SCH (09:00)
[2019-10-28] MEDS ORDERED: PANTOPRAZOLE 40 MG TABLET PO SCH (09:00)
[2019-10-28] MEDS ORDERED: FUROSEMIDE 20 MG/2 ML VIAL IV SCH (09:00)
[2019-10-28] MEDS ORDERED: amLODIPine 5 MG TABLET PO SCH (09:00)
[2019-10-28] MEDS ORDERED: TORSEMIDE 20 MG TABLET PO SCH (09:00)
[2019-10-28] MEDS: DOCUSATE SODIUM 100 MG CAPSULE PO SCH (09:17)
[2019-10-28] MEDS: APIXABAN 5 MG TABLET PO SCH (09:24)
[2019-10-28] MEDS: carvediloL 6.25 MG TABLET PO SCH (09:24)
[2019-10-28] MEDS ORDERED: cefTRIAXone 1,000 MG in SYRINGE 1 EACH IV ONE (11:56)
[2019-10-28] MEDS ORDERED: MAGNESIUM OXIDE 400 MG TABLET PO ONE (11:58)
[2019-10-28 16:38] VITALS: BP 176/66
== END 2019-10-28 17:57 | disposition home health service (06) ==
LOC: N.ED 08:33 → N.EDINP 08:33 → N.2W 11:24
PROVIDERS: ADMIT Family Medicine; ATTEND Family Medicine

== ENCOUNTER 2019-12-12 20:16 | Inpatient (IN) ==
[2019-12-12] MEDS ORDERED: MORPHINE 4 MG/1 ML VIAL IV STA (20:41)
[2019-12-12] MEDS ORDERED: ONDANSETRON 4 MG/2 ML VIAL IV STA (20:41)
[2019-12-12] MEDS ORDERED: FUROSEMIDE 40 MG/4 ML VIAL IV STA (20:41)
[2019-12-12 20:56] LABS: Basophils # 0.1 10*3/uL (0.0-0.2); Basophils % 0.5 % (0.0-0.8); Eosinophils # 0.2 10*3/uL (0.0-0.87); Eosinophils % 1.8 % (0.00-10.9); Hematocrit 40.3 VOL% (35.7-47.0); Hemoglobin 12.6 GM/DL (12.0-16.0); Immature Granulocytes % 0.4 %; Immature Granulocytes Absolute 0.04 #; Lymphocytes # 1.4 10*3/uL (1.4-4.0); Lymphocytes % 14.2 % (21.3-54.2); Mean Corpuscular HGB Conc 31.3 GM/DL (32-36); Mean Corpuscular Volume 91.2 FL (87-102); Mean Platelet Volume 10.9 FL (9.6-12.0); Monocytes % 8.2 % (1.7-12.7); Neutrophils % 74.9 % (38.7-73.9); Platelet Count 184 T/CUMM (130-400); Red Blood Count 4.42 MC/CUMM (3.8-5.5); Red Cell Distribution Width 14.8 % (9.3-17.3); White Blood Count 10.1 T/CUMM (4-12)
[2019-12-12 21:08] LABS: Albumin 2.6 G/DL (3.4-5.0); Bilirubin,Total 0.6 MG/DL (0.2-1.0); Calcium 9.9 MG/DL (8.5-10.1); Osmolality,Calculated 292.5 MOS/KG (273-304); Total Protein 7.5 G/DL (6.4-8.3)
[2019-12-12 21:15] LABS: INR 1.2; PT Patient Result 12.5 SECS (9.6-12.2); Partial Thromboplastin Time 32.4 SECS (20.8-36.0)
[2019-12-12] MEDS ORDERED: ONDANSETRON 4 MG/2 ML VIAL IV PRN (21:38)
[2019-12-12] MEDS ORDERED: ACETAMINOPHEN 325 MG TABLET PO PRN (21:38)
[2019-12-13] MEDS: LABETALOL 100 MG/20 ML VIAL IV SCH ×4 (01:27→21:05)
[2019-12-13] MEDS ORDERED: POTASSIUM CHLORIDE RIDER 10 MEQ in PREMIX 1 EACH IV PRN (05:58)
[2019-12-13] MEDS ORDERED: POTASSIUM CHLORIDE 20 MEQ TABLET PO PRN (05:58)
[2019-12-13] MEDS ORDERED: DEXTROSE 50% 25 GM/50 ML VIAL IV PRN (05:58)
[2019-12-13] MEDS ORDERED: GLUCAGON 1 MG VIAL IM PRN (05:58)
[2019-12-13 06:38] LABS: Calcium 9.7 MG/DL (8.5-10.1); Osmolality,Calculated 287.7 MOS/KG (273-304)
[2019-12-13] MEDS ORDERED: FUROSEMIDE 40 MG/4 ML VIAL IV SCH ×2 (09:00→16:00)
[2019-12-13] MEDS: INSULIN LISPRO 100 UNIT/ML SUBCUT SCH ×4 (09:35→21:06)
[2019-12-13] MEDS: INSULIN GLARGINE 100 UNIT/ML SUBCUT SCH (09:37)
[2019-12-13] MEDS: cycloSPORINE OPH EMUL 1 VIAL BOTH EYES SCH ×2 (09:44→17:35)
[2019-12-13] MEDS: AMIODARONE 200 MG TABLET PO SCH (09:46)
[2019-12-13] MEDS: APIXABAN 5 MG TABLET PO SCH ×2 (09:47→21:05)
[2019-12-13] MEDS: MAGNESIUM OXIDE 400 MG TABLET PO SCH (09:47)
[2019-12-13] MEDS: DOCUSATE SODIUM 100 MG CAPSULE PO SCH ×2 (09:47→21:06)
[2019-12-13] MEDS: amLODIPine 5 MG TABLET PO SCH (09:48)
[2019-12-13] MEDS: PANTOPRAZOLE 40 MG TABLET PO SCH (09:49)
[2019-12-13] MEDS: allopurinoL 300 MG TABLET PO SCH (09:50)
[2019-12-13] MEDS: MONTELUKAST 10 MG TABLET PO SCH ×2 (09:50→21:05)
[2019-12-13] MEDS: LEVOTHYROXINE 112 MCG TABLET PO SCH (09:50)
[2019-12-13] MEDS: BUDESONIDE/FORMOTEROL 160-4.5 INHALER 6 GM INH SCH ×2 (09:53→21:04)
[2019-12-13] MEDS ORDERED: ALBUTEROL/IPRATROPIUM 3 ML NEB RESP TX PRN (13:49)
[2019-12-13] MEDS: ALBUTEROL/IPRATROPIUM 3 ML NEB RESP TX SCH ×3 (17:20→22:58)
[2019-12-13] MEDS: DONEPEZIL 10 MG TABLET PO SCH (21:05)
[2019-12-13] MEDS: PREGABALIN 75 MG CAPSULE PO SCH (21:05)
[2019-12-13] MEDS: SIMVASTATIN 20 MG TABLET PO SCH (21:06)
[2019-12-14] MEDS: ALBUTEROL/IPRATROPIUM 3 ML NEB RESP TX SCH ×4 (02:42→19:52)
[2019-12-14 05:37] LABS: Basophils % 0.4 % (0.0-0.8); Eosinophils # 0.2 10*3/uL (0.0-0.87); Eosinophils % 2.2 % (0.00-10.9); Hematocrit 34.7 VOL% (35.7-47.0); Hemoglobin 10.6 GM/DL (12.0-16.0); Immature Granulocytes % 0.2 %; Immature Granulocytes Absolute 0.02 #; Lymphocytes # 1.7 10*3/uL (1.4-4.0); Lymphocytes % 20.2 % (21.3-54.2); Mean Corpuscular HGB Conc 30.5 GM/DL (32-36); Mean Corpuscular Volume 93.8 FL (87-102); Mean Platelet Volume 10.7 FL (9.6-12.0); Monocytes % 12.9 % (1.7-12.7); Neutrophils % 64.1 % (38.7-73.9); Platelet Count 133 T/CUMM (130-400); Red Cell Distribution Width 14.6 % (9.3-17.3); White Blood Count 8.2 T/CUMM (4-12)
[2019-12-14 06:03] LABS: Calcium 9.4 MG/DL (8.5-10.1); Osmolality,Calculated 286.7 MOS/KG (273-304)
[2019-12-14] MEDS: LABETALOL 100 MG/20 ML VIAL IV SCH ×4 (06:20→23:54)
[2019-12-14] MEDS: cycloSPORINE OPH EMUL 1 VIAL BOTH EYES SCH ×2 (06:20→17:26)
[2019-12-14] MEDS: INSULIN LISPRO 100 UNIT/ML SUBCUT SCH ×4 (08:17→20:33)
[2019-12-14] MEDS: INSULIN GLARGINE 100 UNIT/ML SUBCUT SCH (09:44)
[2019-12-14] MEDS: APIXABAN 5 MG TABLET PO SCH ×2 (09:46→20:32)
[2019-12-14] MEDS: MAGNESIUM OXIDE 400 MG TABLET PO SCH (09:46)
[2019-12-14] MEDS: MONTELUKAST 10 MG TABLET PO SCH ×2 (09:46→20:32)
[2019-12-14] MEDS: allopurinoL 300 MG TABLET PO SCH (09:46)
[2019-12-14] MEDS: PANTOPRAZOLE 40 MG TABLET PO SCH (09:46)
[2019-12-14] MEDS: DOCUSATE SODIUM 100 MG CAPSULE PO SCH ×2 (09:46→20:32)
[2019-12-14] MEDS: LEVOTHYROXINE 112 MCG TABLET PO SCH (09:46)
[2019-12-14] MEDS: methylPREDNISolone SOD SUC 40 MG/1 ML VIAL IV SCH ×2 (09:48→20:30)
[2019-12-14] MEDS: amLODIPine 5 MG TABLET PO SCH (09:51)
[2019-12-14] MEDS: BUDESONIDE/FORMOTEROL 160-4.5 INHALER 6 GM INH SCH ×2 (09:51→20:45)
[2019-12-14] MEDS: cefTRIAXone 1,000 MG in SYRINGE 1 EACH IV SCH (09:52)
[2019-12-14 10:37] LABS: ABG Base Excess 6.5 MMOL/L (-2.5-2.5); ABG HCO3 30.3 MMOL/L (20-26); ABG Oxygen Saturation 95.2 % (95-100); ABG PCO2 61.9 MM HG (35-48); ABG PH 7.348 (7.35-7.45); ABG PO2 77.1 MM HG (80-95); ABG TCO2 30.9 MMOL/L (23-27); Allen Test Positive
[2019-12-14] MEDS ORDERED: ALBUTEROL/IPRATROPIUM 3 ML NEB RESP TX PRN (10:37)
[2019-12-14] MEDS: acetaZOLAMIDE 250 MG TABLET PO SCH (12:40)
[2019-12-14 13:10] LABS: ABG Base Excess 5.9 MMOL/L (-2.5-2.5); ABG HCO3 29.5 MMOL/L (20-26); ABG Oxygen Saturation 86.4 % (95-100); ABG PCO2 61.7 MM HG (35-48); ABG PH 7.343 (7.35-7.45); ABG PO2 53.6 MM HG (80-95); ABG TCO2 30.2 MMOL/L (23-27)
[2019-12-14] MEDS ORDERED: KETOROLAC 15 MG/1 ML VIAL IV ONE (15:17)
[2019-12-14] MEDS: BENZONATATE 100 MG CAPSULE PO SCH ×2 (17:25→20:31)
[2019-12-14] MEDS: SIMVASTATIN 20 MG TABLET PO SCH (20:31)
[2019-12-14] MEDS: DONEPEZIL 10 MG TABLET PO SCH (20:31)
[2019-12-14] MEDS: PREGABALIN 75 MG CAPSULE PO SCH (20:32)
[2019-12-15] MEDS: ALBUTEROL/IPRATROPIUM 3 ML NEB RESP TX SCH ×4 (01:45→19:16)
[2019-12-15 04:30] LABS: ABG Base Excess 3.3 MMOL/L (-2.5-2.5); ABG HCO3 27.2 MMOL/L (20-26); ABG Oxygen Saturation 91.7 % (95-100); ABG PCO2 66.1 MM HG (35-48); ABG TCO2 28.9 MMOL/L (23-27); Allen Test Positive; Pt O2 Delivery Device Venturi Mask
[2019-12-15 05:02] LABS: Basophils % 0.2 % (0.0-0.8); Hematocrit 35.6 VOL% (35.7-47.0); Hemoglobin 10.9 GM/DL (12.0-16.0); Immature Granulocytes % 0.3 %; Immature Granulocytes Absolute 0.02 #; Lymphocytes # 0.6 10*3/uL (1.4-4.0); Lymphocytes % 9.3 % (21.3-54.2); Mean Corpuscular HGB Conc 30.6 GM/DL (32-36); Mean Corpuscular Volume 92.2 FL (87-102); Mean Platelet Volume 11.4 FL (9.6-12.0); Monocytes % 1.9 % (1.7-12.7); Neutrophils % 88.3 % (38.7-73.9); Platelet Count 152 T/CUMM (130-400); Red Blood Count 3.86 MC/CUMM (3.8-5.5); Red Cell Distribution Width 14.3 % (9.3-17.3); White Blood Count 6.3 T/CUMM (4-12)
[2019-12-15 05:27] LABS: Calcium 10.4 MG/DL (8.5-10.1); Osmolality,Calculated 301.5 MOS/KG (273-304)
[2019-12-15] MEDS: AMIODARONE 200 MG TABLET PO SCH (05:45)
[2019-12-15] MEDS: LABETALOL 100 MG/20 ML VIAL IV SCH (05:45)
[2019-12-15] MEDS: cycloSPORINE OPH EMUL 1 VIAL BOTH EYES SCH ×2 (05:46→17:47)
[2019-12-15] MEDS: INSULIN LISPRO 100 UNIT/ML SUBCUT SCH ×4 (09:16→23:09)
[2019-12-15] MEDS: methylPREDNISolone SOD SUC 40 MG/1 ML VIAL IV SCH ×2 (09:17→23:14)
[2019-12-15] MEDS: INSULIN GLARGINE 100 UNIT/ML SUBCUT SCH (09:17)
[2019-12-15] MEDS: cefTRIAXone 1,000 MG in SYRINGE 1 EACH IV SCH (09:18)
[2019-12-15] MEDS: allopurinoL 300 MG TABLET PO SCH (09:19)
[2019-12-15] MEDS: MAGNESIUM OXIDE 400 MG TABLET PO SCH (09:19)
[2019-12-15] MEDS: acetaZOLAMIDE 250 MG TABLET PO SCH (09:20)
[2019-12-15] MEDS: NEBIVOLOL 10 MG TABLET PO SCH (09:20)
[2019-12-15] MEDS: MONTELUKAST 10 MG TABLET PO SCH ×2 (09:20→22:20)
[2019-12-15] MEDS: DOCUSATE SODIUM 100 MG CAPSULE PO SCH ×2 (09:20→22:23)
[2019-12-15] MEDS: BENZONATATE 100 MG CAPSULE PO SCH ×3 (09:21→22:21)
[2019-12-15] MEDS: PANTOPRAZOLE 40 MG TABLET PO SCH (09:21)
[2019-12-15] MEDS: LEVOTHYROXINE 112 MCG TABLET PO SCH (09:21)
[2019-12-15] MEDS: BUDESONIDE/FORMOTEROL 160-4.5 INHALER 6 GM INH SCH ×2 (09:21→22:28)
[2019-12-15] MEDS: APIXABAN 5 MG TABLET PO SCH ×2 (09:24→22:20)
[2019-12-15] MEDS: CETIRIZINE 10 MG TABLET PO SCH (12:12)
[2019-12-15 14:00] LABS: ABG Base Excess 3.2 MMOL/L (-2.5-2.5); ABG HCO3 27.1 MMOL/L (20-26); ABG Oxygen Saturation 93.1 % (95-100); ABG PCO2 56.7 MM HG (35-48); ABG PH 7.336 (7.35-7.45); ABG PO2 70.8 MM HG (80-95); ABG TCO2 27.4 MMOL/L (23-27); Allen Test Positive; Pt O2 Delivery Device Venturi Mask
[2019-12-15] MEDS: PREGABALIN 75 MG CAPSULE PO SCH (22:20)
[2019-12-15] MEDS: DONEPEZIL 10 MG TABLET PO SCH (22:22)
[2019-12-15] MEDS: SIMVASTATIN 20 MG TABLET PO SCH (22:23)
[2019-12-16] MEDS: ALBUTEROL/IPRATROPIUM 3 ML NEB RESP TX SCH ×4 (00:10→19:56)
[2019-12-16 03:56] LABS: ABG Base Excess 3.3 MMOL/L (-2.5-2.5); ABG HCO3 27.3 MMOL/L (20-26); ABG PCO2 62.1 MM HG (35-48); ABG PH 7.311 (7.35-7.45); ABG PO2 67.2 MM HG (80-95); ABG TCO2 28.4 MMOL/L (23-27); Allen Test Positive; Pt O2 Delivery Device Venturi Mask
[2019-12-16 06:18] LABS: Hematocrit 34.4 VOL% (35.7-47.0); Hemoglobin 10.7 GM/DL (12.0-16.0); Immature Granulocytes % 0.5 %; Immature Granulocytes Absolute 0.04 #; Lymphocytes # 0.5 10*3/uL (1.4-4.0); Lymphocytes % 6.3 % (21.3-54.2); Mean Corpuscular HGB Conc 31.1 GM/DL (32-36); Mean Platelet Volume 11.1 FL (9.6-12.0); Neutrophils % 91.2 % (38.7-73.9); Platelet Count 171 T/CUMM (130-400); Red Blood Count 3.78 MC/CUMM (3.8-5.5); Red Cell Distribution Width 14.4 % (9.3-17.3); White Blood Count 8.1 T/CUMM (4-12)
[2019-12-16] MEDS: cycloSPORINE OPH EMUL 1 VIAL BOTH EYES SCH ×2 (06:19→18:05)
[2019-12-16 06:47] LABS: Band Neutrophils 1 % (0-10); Calcium 10.1 MG/DL (8.5-10.1); Hypochromasia 1+; Lymphocytes 2 % (20-55); Osmolality,Calculated 306.7 MOS/KG (273-304); Platelet Estimate Adequate; Segmented Neutrophils 95 % (50-85); Total Cells Counted 100
[2019-12-16] MEDS: allopurinoL 300 MG TABLET PO SCH (08:54)
[2019-12-16] MEDS: PANTOPRAZOLE 40 MG TABLET PO SCH (08:55)
[2019-12-16] MEDS: NEBIVOLOL 10 MG TABLET PO SCH (08:55)
[2019-12-16] MEDS: MAGNESIUM OXIDE 400 MG TABLET PO SCH (08:55)
[2019-12-16] MEDS: MONTELUKAST 10 MG TABLET PO SCH ×2 (08:55→22:21)
[2019-12-16] MEDS: BENZONATATE 100 MG CAPSULE PO SCH ×3 (08:55→22:23)
[2019-12-16] MEDS: BUDESONIDE/FORMOTEROL 160-4.5 INHALER 6 GM INH SCH ×2 (08:56→22:25)
[2019-12-16] MEDS: DOCUSATE SODIUM 100 MG CAPSULE PO SCH ×2 (08:56→22:22)
[2019-12-16] MEDS: INSULIN LISPRO 100 UNIT/ML SUBCUT SCH ×4 (08:56→22:24)
[2019-12-16] MEDS: acetaZOLAMIDE 250 MG TABLET PO SCH (08:56)
[2019-12-16] MEDS: LEVOTHYROXINE 112 MCG TABLET PO SCH (08:56)
[2019-12-16] MEDS: INSULIN GLARGINE 100 UNIT/ML SUBCUT SCH (09:06)
[2019-12-16] MEDS: cefTRIAXone 1,000 MG in SYRINGE 1 EACH IV SCH (09:09)
[2019-12-16] MEDS: methylPREDNISolone SOD SUC 40 MG/1 ML VIAL IV SCH ×2 (09:13→22:25)
[2019-12-16] MEDS: APIXABAN 5 MG TABLET PO SCH ×2 (09:17→22:21)
[2019-12-16] MEDS: amLODIPine 5 MG TABLET PO SCH (09:21)
[2019-12-16 11:46] LABS: ABG Base Excess 1.7 MMOL/L (-2.5-2.5); ABG HCO3 25.9 MMOL/L (20-26); ABG Oxygen Saturation 94.3 % (95-100); ABG PCO2 49.2 MM HG (35-48); ABG PH 7.361 (7.35-7.45); ABG PO2 72.7 MM HG (80-95)
[2019-12-16] MEDS: CETIRIZINE 10 MG TABLET PO SCH (13:00)
[2019-12-16] MEDS: SIMVASTATIN 20 MG TABLET PO SCH (22:21)
[2019-12-16] MEDS: DONEPEZIL 10 MG TABLET PO SCH (22:22)
[2019-12-16] MEDS: PREGABALIN 75 MG CAPSULE PO SCH (22:22)
[2019-12-17] MEDS: ALBUTEROL/IPRATROPIUM 3 ML NEB RESP TX SCH ×4 (00:55→19:39)
[2019-12-17 06:02] LABS: Basophils % 0.2 % (0.0-0.8); Hematocrit 35.7 VOL% (35.7-47.0); Hemoglobin 10.9 GM/DL (12.0-16.0); Immature Granulocytes % 0.5 %; Immature Granulocytes Absolute 0.03 #; Lymphocytes # 0.4 10*3/uL (1.4-4.0); Lymphocytes % 6.6 % (21.3-54.2); Mean Corpuscular HGB Conc 30.5 GM/DL (32-36); Mean Corpuscular Volume 91.1 FL (87-102); Mean Platelet Volume 11.4 FL (9.6-12.0); Monocytes % 1.6 % (1.7-12.7); Neutrophils % 91.1 % (38.7-73.9); Platelet Count 186 T/CUMM (130-400); Red Blood Count 3.92 MC/CUMM (3.8-5.5); Red Cell Distribution Width 14.3 % (9.3-17.3); White Blood Count 6.4 T/CUMM (4-12)
[2019-12-17 06:22] LABS: Calcium 10.2 MG/DL (8.5-10.1); Osmolality,Calculated 312.4 MOS/KG (273-304)
[2019-12-17 06:26] LABS: Hypochromasia 1+; Lymphocytes 4 % (20-55); Platelet Estimate Adequate; Segmented Neutrophils 95 % (50-85); Total Cells Counted 100
[2019-12-17] MEDS: AMIODARONE 200 MG TABLET PO SCH (06:52)
[2019-12-17] MEDS: cycloSPORINE OPH EMUL 1 VIAL BOTH EYES SCH ×2 (07:02→18:28)
[2019-12-17] MEDS: INSULIN GLARGINE 100 UNIT/ML SUBCUT SCH (09:30)
[2019-12-17] MEDS: INSULIN LISPRO 100 UNIT/ML SUBCUT SCH ×4 (09:30→21:22)
[2019-12-17] MEDS: LEVOTHYROXINE 112 MCG TABLET PO SCH (09:31)
[2019-12-17] MEDS: APIXABAN 5 MG TABLET PO SCH ×2 (09:32→21:29)
[2019-12-17] MEDS: MONTELUKAST 10 MG TABLET PO SCH ×2 (09:32→21:29)
[2019-12-17] MEDS: NEBIVOLOL 10 MG TABLET PO SCH (09:32)
[2019-12-17] MEDS: DOCUSATE SODIUM 100 MG CAPSULE PO SCH ×2 (09:32→21:29)
[2019-12-17] MEDS: allopurinoL 300 MG TABLET PO SCH (09:32)
[2019-12-17] MEDS: acetaZOLAMIDE 250 MG TABLET PO SCH (09:32)
[2019-12-17] MEDS: BENZONATATE 100 MG CAPSULE PO SCH ×3 (09:32→21:29)
[2019-12-17] MEDS: MAGNESIUM OXIDE 400 MG TABLET PO SCH (09:32)
[2019-12-17] MEDS: PANTOPRAZOLE 40 MG TABLET PO SCH (09:33)
[2019-12-17] MEDS: amLODIPine 5 MG TABLET PO SCH (09:33)
[2019-12-17] MEDS: BUDESONIDE/FORMOTEROL 160-4.5 INHALER 6 GM INH SCH ×2 (09:36→21:30)
[2019-12-17 09:51] LABS: ABG HCO3 27.3 MMOL/L (20-26); ABG Oxygen Saturation 91.8 % (95-100); ABG PCO2 50.8 MM HG (35-48); ABG PH 7.348 (7.35-7.45); ABG PO2 66.2 MM HG (80-95); ABG TCO2 28.8 MMOL/L (23-27)
[2019-12-17] MEDS ORDERED: SODIUM CHLORIDE 0.9% 100 ML IV ONE (10:20)
[2019-12-17] MEDS: methylPREDNISolone SOD SUC 40 MG/1 ML VIAL IV SCH ×2 (11:20→21:24)
[2019-12-17] MEDS: cefTRIAXone 1,000 MG in SYRINGE 1 EACH IV SCH (11:21)
[2019-12-17 12:00] LABS: ABG Base Excess 1.1 MMOL/L (-2.5-2.5); ABG HCO3 25.1 MMOL/L (20-26); ABG Oxygen Saturation 81.3 % (95-100); ABG PCO2 47.9 MM HG (35-48); ABG PH 7.363 (7.35-7.45); ABG PO2 48.6 MM HG (80-95); ABG TCO2 24.1 MMOL/L (23-27)
[2019-12-17] MEDS: CETIRIZINE 10 MG TABLET PO SCH (13:40)
[2019-12-17] MEDS: DONEPEZIL 10 MG TABLET PO SCH (21:28)
[2019-12-17] MEDS: PREGABALIN 75 MG CAPSULE PO SCH (21:29)
[2019-12-17] MEDS: SIMVASTATIN 20 MG TABLET PO SCH (21:30)
[2019-12-18] MEDS: ALBUTEROL/IPRATROPIUM 3 ML NEB RESP TX SCH ×4 (00:07→19:25)
[2019-12-18] MEDS: cycloSPORINE OPH EMUL 1 VIAL BOTH EYES SCH ×2 (06:07→17:36)
[2019-12-18] MEDS: acetaZOLAMIDE 250 MG TABLET PO SCH (10:21)
[2019-12-18] MEDS: NEBIVOLOL 10 MG TABLET PO SCH (10:22)
[2019-12-18] MEDS: PANTOPRAZOLE 40 MG TABLET PO SCH (10:22)
[2019-12-18] MEDS: MONTELUKAST 10 MG TABLET PO SCH ×2 (10:22→21:50)
[2019-12-18] MEDS: APIXABAN 5 MG TABLET PO SCH ×2 (10:22→21:49)
[2019-12-18] MEDS: MAGNESIUM OXIDE 400 MG TABLET PO SCH (10:23)
[2019-12-18] MEDS: DOCUSATE SODIUM 100 MG CAPSULE PO SCH ×2 (10:23→21:49)
[2019-12-18] MEDS: allopurinoL 300 MG TABLET PO SCH (10:23)
[2019-12-18] MEDS: LEVOTHYROXINE 112 MCG TABLET PO SCH (10:26)
[2019-12-18] MEDS: BENZONATATE 100 MG CAPSULE PO SCH ×3 (10:26→21:50)
[2019-12-18] MEDS: amLODIPine 5 MG TABLET PO SCH (10:26)
[2019-12-18] MEDS: INSULIN GLARGINE 100 UNIT/ML SUBCUT SCH (10:28)
[2019-12-18] MEDS: BUDESONIDE/FORMOTEROL 160-4.5 INHALER 6 GM INH SCH ×2 (10:29→21:53)
[2019-12-18] MEDS: cefTRIAXone 1,000 MG in SYRINGE 1 EACH IV SCH (10:29)
[2019-12-18] MEDS: methylPREDNISolone SOD SUC 40 MG/1 ML VIAL IV SCH ×2 (10:30→21:55)
[2019-12-18] MEDS: INSULIN LISPRO 100 UNIT/ML SUBCUT SCH ×4 (10:37→21:47)
[2019-12-18] MEDS: CETIRIZINE 10 MG TABLET PO SCH (13:52)
[2019-12-18] MEDS: DONEPEZIL 10 MG TABLET PO SCH (21:48)
[2019-12-18] MEDS: PREGABALIN 75 MG CAPSULE PO SCH (21:49)
[2019-12-18] MEDS: SIMVASTATIN 20 MG TABLET PO SCH (21:51)
[2019-12-19] MEDS: ALBUTEROL/IPRATROPIUM 3 ML NEB RESP TX SCH ×4 (01:00→20:11)
[2019-12-19 03:44] LABS: ABG Base Excess 0.4 MMOL/L (-2.5-2.5); ABG HCO3 24.6 MMOL/L (20-26); ABG Oxygen Saturation 89.8 % (95-100); ABG PCO2 55.7 MM HG (35-48); ABG PH 7.309 (7.35-7.45); ABG PO2 62.8 MM HG (80-95); ABG TCO2 24.9 MMOL/L (23-27); Allen Test Positive
[2019-12-19] MEDS: cycloSPORINE OPH EMUL 1 VIAL BOTH EYES SCH ×2 (06:08→18:07)
[2019-12-19 06:10] LABS: Hematocrit 39.8 VOL% (35.7-47.0); Immature Granulocytes % 0.5 %; Immature Granulocytes Absolute 0.03 #; Lymphocytes # 0.3 10*3/uL (1.4-4.0); Lymphocytes % 5.6 % (21.3-54.2); Mean Corpuscular HGB Conc 30.2 GM/DL (32-36); Mean Corpuscular Volume 91.7 FL (87-102); Mean Platelet Volume 11.1 FL (9.6-12.0); Monocytes % 1.6 % (1.7-12.7); Neutrophils % 92.3 % (38.7-73.9); Platelet Count 215 T/CUMM (130-400); Red Blood Count 4.34 MC/CUMM (3.8-5.5); Red Cell Distribution Width 14.3 % (9.3-17.3); White Blood Count 6.1 T/CUMM (4-12)
[2019-12-19 06:26] LABS: Calcium 10.7 MG/DL (8.5-10.1); Osmolality,Calculated 314.1 MOS/KG (273-304)
[2019-12-19 06:38] LABS: Hypochromasia 1+; Lymphocytes 4 % (20-55); Ovalocytes Slight; Platelet Estimate Adequate; Segmented Neutrophils 95 % (50-85); Total Cells Counted 100
[2019-12-19] MEDS: cefTRIAXone 1,000 MG in SYRINGE 1 EACH IV SCH (10:29)
[2019-12-19] MEDS: INSULIN LISPRO 100 UNIT/ML SUBCUT SCH ×4 (10:29→21:09)
[2019-12-19] MEDS: BENZONATATE 100 MG CAPSULE PO SCH ×3 (10:31→21:12)
[2019-12-19] MEDS: NEBIVOLOL 10 MG TABLET PO SCH (10:31)
[2019-12-19] MEDS: DOCUSATE SODIUM 100 MG CAPSULE PO SCH ×2 (10:31→21:11)
[2019-12-19] MEDS: acetaZOLAMIDE 250 MG TABLET PO SCH (10:31)
[2019-12-19] MEDS: MAGNESIUM OXIDE 400 MG TABLET PO SCH (10:32)
[2019-12-19] MEDS: allopurinoL 300 MG TABLET PO SCH (10:32)
[2019-12-19] MEDS: LEVOTHYROXINE 112 MCG TABLET PO SCH (10:32)
[2019-12-19] MEDS: PANTOPRAZOLE 40 MG TABLET PO SCH (10:32)
[2019-12-19] MEDS: MONTELUKAST 10 MG TABLET PO SCH ×2 (10:32→21:12)
[2019-12-19] MEDS: APIXABAN 5 MG TABLET PO SCH ×2 (10:32→21:12)
[2019-12-19] MEDS: methylPREDNISolone SOD SUC 40 MG/1 ML VIAL IV SCH ×2 (10:33→21:12)
[2019-12-19] MEDS: amLODIPine 5 MG TABLET PO SCH (10:37)
[2019-12-19] MEDS: BUDESONIDE/FORMOTEROL 160-4.5 INHALER 6 GM INH SCH ×2 (10:37→21:14)
[2019-12-19] MEDS: INSULIN GLARGINE 100 UNIT/ML SUBCUT SCH (10:49)
[2019-12-19] MEDS: CETIRIZINE 10 MG TABLET PO SCH (12:11)
[2019-12-19 20:21] LABS: ABG Base Excess -0.5 MMOL/L (-2.5-2.5); ABG HCO3 23.9 MMOL/L (20-26); ABG Oxygen Saturation 95.5 % (95-100); ABG PCO2 47.4 MM HG (35-48); ABG PH 7.343 (7.35-7.45); ABG PO2 79.2 MM HG (80-95); ABG TCO2 22.7 MMOL/L (23-27)
[2019-12-19] MEDS: PREGABALIN 75 MG CAPSULE PO SCH (21:12)
[2019-12-19] MEDS: SIMVASTATIN 20 MG TABLET PO SCH (21:12)
[2019-12-19] MEDS: DONEPEZIL 10 MG TABLET PO SCH (21:12)
[2019-12-20] MEDS: ALBUTEROL/IPRATROPIUM 3 ML NEB RESP TX SCH ×3 (00:30→19:16)
[2019-12-20 04:04] LABS: ABG Base Excess -0.3 MMOL/L (-2.5-2.5); ABG HCO3 24.1 MMOL/L (20-26); ABG Oxygen Saturation 93.4 % (95-100); ABG PCO2 49.9 MM HG (35-48); ABG PH 7.329 (7.35-7.45); ABG TCO2 23.5 MMOL/L (23-27)
[2019-12-20] MEDS: AMIODARONE 200 MG TABLET PO SCH (05:12)
[2019-12-20] MEDS: cycloSPORINE OPH EMUL 1 VIAL BOTH EYES SCH ×2 (05:13→17:22)
[2019-12-20] MEDS: cefTRIAXone 1,000 MG in SYRINGE 1 EACH IV SCH (09:57)
[2019-12-20] MEDS: INSULIN GLARGINE 100 UNIT/ML SUBCUT SCH (09:57)
[2019-12-20] MEDS: methylPREDNISolone SOD SUC 40 MG/1 ML VIAL IV SCH ×2 (09:57→21:31)
[2019-12-20] MEDS: INSULIN LISPRO 100 UNIT/ML SUBCUT SCH ×4 (09:58→21:30)
[2019-12-20] MEDS: DOCUSATE SODIUM 100 MG CAPSULE PO SCH ×2 (09:58→21:30)
[2019-12-20] MEDS: amLODIPine 5 MG TABLET PO SCH (09:58)
[2019-12-20] MEDS: BENZONATATE 100 MG CAPSULE PO SCH ×3 (09:58→21:38)
[2019-12-20] MEDS: NEBIVOLOL 10 MG TABLET PO SCH (09:58)
[2019-12-20] MEDS: MAGNESIUM OXIDE 400 MG TABLET PO SCH (09:59)
[2019-12-20] MEDS: APIXABAN 5 MG TABLET PO SCH ×2 (09:59→21:30)
[2019-12-20] MEDS: allopurinoL 300 MG TABLET PO SCH (09:59)
[2019-12-20] MEDS: acetaZOLAMIDE 250 MG TABLET PO SCH (09:59)
[2019-12-20] MEDS: LEVOTHYROXINE 112 MCG TABLET PO SCH (09:59)
[2019-12-20] MEDS: PANTOPRAZOLE 40 MG TABLET PO SCH (09:59)
[2019-12-20] MEDS: MONTELUKAST 10 MG TABLET PO SCH ×2 (09:59→21:30)
[2019-12-20] MEDS: BUDESONIDE/FORMOTEROL 160-4.5 INHALER 6 GM INH SCH ×2 (10:00→21:35)
[2019-12-20] MEDS: DONEPEZIL 10 MG TABLET PO SCH (21:30)
[2019-12-20] MEDS: PREGABALIN 75 MG CAPSULE PO SCH (21:30)
[2019-12-20] MEDS: SIMVASTATIN 20 MG TABLET PO SCH (21:38)
[2019-12-21 04:48] LABS: ABG Base Excess -0.6 MMOL/L (-2.5-2.5); ABG HCO3 23.9 MMOL/L (20-26); ABG Oxygen Saturation 93.4 % (95-100); ABG PCO2 53.8 MM HG (35-48); ABG PH 7.305 (7.35-7.45); ABG PO2 71.5 MM HG (80-95); Allen Test Positive
[2019-12-21] MEDS: cycloSPORINE OPH EMUL 1 VIAL BOTH EYES SCH ×2 (05:08→18:35)
[2019-12-21 05:12] LABS: Hematocrit 39.8 VOL% (35.7-47.0); Hemoglobin 12.2 GM/DL (12.0-16.0); Immature Granulocytes % 0.4 %; Immature Granulocytes Absolute 0.03 #; Lymphocytes # 0.4 10*3/uL (1.4-4.0); Lymphocytes % 5.2 % (21.3-54.2); Mean Corpuscular HGB Conc 30.7 GM/DL (32-36); Mean Corpuscular Volume 91.3 FL (87-102); Mean Platelet Volume 11.7 FL (9.6-12.0); Monocytes % 1.6 % (1.7-12.7); Neutrophils % 92.8 % (38.7-73.9); Platelet Count 231 T/CUMM (130-400); Red Blood Count 4.36 MC/CUMM (3.8-5.5); Red Cell Distribution Width 14.5 % (9.3-17.3); White Blood Count 6.9 T/CUMM (4-12)
[2019-12-21 05:33] LABS: Band Neutrophils 1 % (0-10); Hypochromasia 1+; Lymphocytes 2 % (20-55); Nucleated Red Blood Cells 1 (0-5); Ovalocytes Slight; Platelet Estimate Adequate; Segmented Neutrophils 96 % (50-85); Total Cells Counted 100
[2019-12-21 05:38] LABS: Albumin 2.4 G/DL (3.4-5.0); Bilirubin,Total 0.6 MG/DL (0.2-1.0); Calcium 10.3 MG/DL (8.5-10.1); Osmolality,Calculated 310.3 MOS/KG (273-304); Total Protein 6.6 G/DL (6.4-8.3)
[2019-12-21] MEDS: ALBUTEROL/IPRATROPIUM 3 ML NEB RESP TX SCH ×2 (07:21→20:57)
[2019-12-21] MEDS: DOCUSATE SODIUM 100 MG CAPSULE PO SCH ×2 (09:47→21:08)
[2019-12-21] MEDS: MONTELUKAST 10 MG TABLET PO SCH ×2 (09:47→21:08)
[2019-12-21] MEDS: MAGNESIUM OXIDE 400 MG TABLET PO SCH (09:47)
[2019-12-21] MEDS: APIXABAN 5 MG TABLET PO SCH ×2 (09:47→21:08)
[2019-12-21] MEDS: BENZONATATE 100 MG CAPSULE PO SCH ×3 (09:47→21:09)
[2019-12-21] MEDS: acetaZOLAMIDE 250 MG TABLET PO SCH (09:47)
[2019-12-21] MEDS: NEBIVOLOL 10 MG TABLET PO SCH (09:47)
[2019-12-21] MEDS: LEVOTHYROXINE 112 MCG TABLET PO SCH (09:47)
[2019-12-21] MEDS: amLODIPine 5 MG TABLET PO SCH (09:47)
[2019-12-21] MEDS: PANTOPRAZOLE 40 MG TABLET PO SCH (09:47)
[2019-12-21] MEDS: allopurinoL 300 MG TABLET PO SCH (09:47)
[2019-12-21] MEDS: INSULIN GLARGINE 100 UNIT/ML SUBCUT SCH (09:57)
[2019-12-21] MEDS: INSULIN LISPRO 100 UNIT/ML SUBCUT SCH ×4 (09:57→21:09)
[2019-12-21] MEDS: methylPREDNISolone SOD SUC 40 MG/1 ML VIAL IV SCH ×2 (09:58→21:10)
[2019-12-21] MEDS: FLUTICASONE 50 MCG NASAL SPRAY 16 GM BOTTLE BOTH NARES SCH (09:58)
[2019-12-21] MEDS: cefTRIAXone 1,000 MG in SYRINGE 1 EACH IV SCH (09:58)
[2019-12-21] MEDS: BUDESONIDE/FORMOTEROL 160-4.5 INHALER 6 GM INH SCH ×2 (09:58→21:14)
[2019-12-21] MEDS ORDERED: NEBIVOLOL 5 MG TABLET PO SCH ×2 (11:00)
[2019-12-21] MEDS: DONEPEZIL 10 MG TABLET PO SCH (21:09)
[2019-12-21] MEDS: SIMVASTATIN 20 MG TABLET PO SCH (21:09)
[2019-12-21] MEDS: PREGABALIN 75 MG CAPSULE PO SCH (21:09)
[2019-12-22] MEDS: cycloSPORINE OPH EMUL 1 VIAL BOTH EYES SCH ×2 (06:11→17:34)
[2019-12-22] MEDS: ALBUTEROL/IPRATROPIUM 3 ML NEB RESP TX SCH ×2 (06:51→18:59)
[2019-12-22] MEDS: INSULIN LISPRO 100 UNIT/ML SUBCUT SCH ×4 (08:59→22:01)
[2019-12-22] MEDS: MAGNESIUM OXIDE 400 MG TABLET PO SCH (09:00)
[2019-12-22] MEDS: AMIODARONE 200 MG TABLET PO SCH (09:01)
[2019-12-22] MEDS: acetaZOLAMIDE 250 MG TABLET PO SCH (09:01)
[2019-12-22] MEDS: amLODIPine 5 MG TABLET PO SCH (09:01)
[2019-12-22] MEDS: allopurinoL 300 MG TABLET PO SCH (09:01)
[2019-12-22] MEDS: DOCUSATE SODIUM 100 MG CAPSULE PO SCH ×2 (09:01→22:01)
[2019-12-22] MEDS: MONTELUKAST 10 MG TABLET PO SCH ×2 (09:01→22:02)
[2019-12-22] MEDS: FLUTICASONE 50 MCG NASAL SPRAY 16 GM BOTTLE BOTH NARES SCH (09:02)
[2019-12-22] MEDS: PANTOPRAZOLE 40 MG TABLET PO SCH (09:02)
[2019-12-22] MEDS: LEVOTHYROXINE 112 MCG TABLET PO SCH (09:02)
[2019-12-22] MEDS: INSULIN GLARGINE 100 UNIT/ML SUBCUT SCH (09:02)
[2019-12-22] MEDS: BENZONATATE 100 MG CAPSULE PO SCH ×3 (09:02→22:01)
[2019-12-22] MEDS: methylPREDNISolone SOD SUC 40 MG/1 ML VIAL IV SCH ×2 (09:02→22:01)
[2019-12-22] MEDS: BUDESONIDE/FORMOTEROL 160-4.5 INHALER 6 GM INH SCH ×2 (09:02→22:01)
[2019-12-22] MEDS: APIXABAN 5 MG TABLET PO SCH ×2 (09:02→22:02)
[2019-12-22] MEDS: SIMVASTATIN 20 MG TABLET PO SCH (22:01)
[2019-12-22] MEDS: DONEPEZIL 10 MG TABLET PO SCH (22:01)
[2019-12-22] MEDS: PREGABALIN 75 MG CAPSULE PO SCH (22:07)
[2019-12-23] MEDS: ALBUTEROL/IPRATROPIUM 3 ML NEB RESP TX SCH ×2 (07:38→20:20)
[2019-12-23] MEDS: INSULIN GLARGINE 100 UNIT/ML SUBCUT SCH (08:56)
[2019-12-23] MEDS: methylPREDNISolone SOD SUC 40 MG/1 ML VIAL IV SCH (08:56)
[2019-12-23] MEDS: INSULIN LISPRO 100 UNIT/ML SUBCUT SCH ×4 (08:56→21:35)
[2019-12-23] MEDS: amLODIPine 5 MG TABLET PO SCH (08:57)
[2019-12-23] MEDS: DOCUSATE SODIUM 100 MG CAPSULE PO SCH ×2 (08:57→21:35)
[2019-12-23] MEDS: BENZONATATE 100 MG CAPSULE PO SCH ×3 (08:57→21:34)
[2019-12-23] MEDS: AMIODARONE 200 MG TABLET PO SCH (08:57)
[2019-12-23] MEDS: MAGNESIUM OXIDE 400 MG TABLET PO SCH (08:57)
[2019-12-23] MEDS: acetaZOLAMIDE 250 MG TABLET PO SCH (08:57)
[2019-12-23] MEDS: FLUTICASONE 50 MCG NASAL SPRAY 16 GM BOTTLE BOTH NARES SCH (08:58)
[2019-12-23] MEDS: APIXABAN 5 MG TABLET PO SCH ×2 (08:58→21:35)
[2019-12-23] MEDS: allopurinoL 300 MG TABLET PO SCH (08:58)
[2019-12-23] MEDS: BUDESONIDE/FORMOTEROL 160-4.5 INHALER 6 GM INH SCH ×2 (08:58→21:36)
[2019-12-23] MEDS: LEVOTHYROXINE 112 MCG TABLET PO SCH (08:58)
[2019-12-23] MEDS: MONTELUKAST 10 MG TABLET PO SCH ×2 (08:58→21:35)
[2019-12-23] MEDS: PANTOPRAZOLE 40 MG TABLET PO SCH (08:58)
[2019-12-23] MEDS: cycloSPORINE OPH EMUL 1 VIAL BOTH EYES SCH ×2 (09:50→17:40)
[2019-12-23] MEDS: LEVOFLOXACIN 250 MG TABLET PO SCH (11:50)
[2019-12-23] MEDS: predniSONE 20 MG TABLET PO SCH ×2 (11:50→21:35)
[2019-12-23] MEDS: PREGABALIN 75 MG CAPSULE PO SCH (21:35)
[2019-12-23] MEDS: DONEPEZIL 10 MG TABLET PO SCH (21:35)
[2019-12-23] MEDS: SIMVASTATIN 20 MG TABLET PO SCH (21:35)
[2019-12-24 05:52] LABS: Basophils % 0.1 % (0.0-0.8); Hematocrit 41.9 VOL% (35.7-47.0); Hemoglobin 12.8 GM/DL (12.0-16.0); Immature Granulocytes % 0.5 %; Immature Granulocytes Absolute 0.04 #; Lymphocytes # 0.3 10*3/uL (1.4-4.0); Lymphocytes % 3.9 % (21.3-54.2); Mean Corpuscular HGB Conc 30.5 GM/DL (32-36); Mean Corpuscular Volume 91.1 FL (87-102); Mean Platelet Volume 11.6 FL (9.6-12.0); Monocytes % 6.8 % (1.7-12.7); Neutrophils % 88.7 % (38.7-73.9); Platelet Count 193 T/CUMM (130-400); Red Cell Distribution Width 14.7 % (9.3-17.3); White Blood Count 7.4 T/CUMM (4-12)
[2019-12-24 06:27] LABS: Calcium 10.2 MG/DL (8.5-10.1)
[2019-12-24] MEDS: cycloSPORINE OPH EMUL 1 VIAL BOTH EYES SCH (06:33)
[2019-12-24 06:37] LABS: Lymphocytes 1 % (20-55); Segmented Neutrophils 97 % (50-85); Total Cells Counted 100
[2019-12-24 06:38] LABS: Hypochromasia 1+; Platelet Estimate Adequate
[2019-12-24] MEDS: ALBUTEROL/IPRATROPIUM 3 ML NEB RESP TX SCH (07:54)
[2019-12-24] MEDS: INSULIN LISPRO 100 UNIT/ML SUBCUT SCH ×2 (09:28→12:38)
[2019-12-24] MEDS: AMIODARONE 200 MG TABLET PO SCH (09:29)
[2019-12-24] MEDS: INSULIN GLARGINE 100 UNIT/ML SUBCUT SCH (09:29)
[2019-12-24] MEDS: DOCUSATE SODIUM 100 MG CAPSULE PO SCH (09:29)
[2019-12-24] MEDS: MAGNESIUM OXIDE 400 MG TABLET PO SCH (09:29)
[2019-12-24] MEDS: BENZONATATE 100 MG CAPSULE PO SCH (09:29)
[2019-12-24] MEDS: LEVOTHYROXINE 112 MCG TABLET PO SCH (09:30)
[2019-12-24] MEDS: allopurinoL 300 MG TABLET PO SCH (09:30)
[2019-12-24] MEDS: PANTOPRAZOLE 40 MG TABLET PO SCH (09:30)
[2019-12-24] MEDS: BUDESONIDE/FORMOTEROL 160-4.5 INHALER 6 GM INH SCH (09:30)
[2019-12-24] MEDS: amLODIPine 5 MG TABLET PO SCH (09:30)
[2019-12-24] MEDS: MONTELUKAST 10 MG TABLET PO SCH (09:30)
[2019-12-24] MEDS: APIXABAN 5 MG TABLET PO SCH (09:30)
[2019-12-24] MEDS: LEVOFLOXACIN 250 MG TABLET PO SCH (09:30)
[2019-12-24] MEDS: predniSONE 20 MG TABLET PO SCH (09:30)
[2019-12-24] MEDS: FLUTICASONE 50 MCG NASAL SPRAY 16 GM BOTTLE BOTH NARES SCH (09:31)
[2019-12-24] MEDS: acetaZOLAMIDE 250 MG TABLET PO SCH (09:32)
[2019-12-24] MEDS ORDERED: hydrALAZINE 25 MG TABLET PO SCH (10:30)
[2019-12-24 12:16] VITALS: BP 180/70
== END 2019-12-24 16:18 | disposition home health service (06) | DRG 190 ==
LOC: N.ED 20:16 → N.EDINP 21:38 → N.TELES 23:22
PROVIDERS: ADMIT Family Medicine; ATTEND Family Medicine

== ENCOUNTER 2021-01-17 08:46 | Observation (INO) ==
[2021-01-17] MEDS ORDERED: KETOROLAC 30 MG/1 ML VIAL IV STA (08:59)
[2021-01-17 10:59] LABS: Basophils # 0.1 10*3/uL (0.0-0.2); Basophils % 0.5 % (0.0-0.8); Eosinophils % 0.1 % (0.00-10.9); Hematocrit 43.4 VOL% (35.7-47.0); Hemoglobin 14.2 GM/DL (12.0-16.0); Immature Granulocytes % 0.7 %; Immature Granulocytes Absolute 0.08 #; Lymphocytes # 1.2 10*3/uL (1.4-4.0); Lymphocytes % 10.5 % (21.3-54.2); Mean Corpuscular HGB Conc 32.7 GM/DL (32-36); Mean Corpuscular Volume 94.6 FL (87-102); Mean Platelet Volume 11.2 FL (9.6-12.0); Monocytes % 12.6 % (1.7-12.7); Neutrophils % 75.6 % (38.7-73.9); Platelet Count 107 T/CUMM (130-400); Red Blood Count 4.59 MC/CUMM (3.8-5.5); Red Cell Distribution Width 13.2 % (9.3-17.3); White Blood Count 11.6 T/CUMM (4-12)
[2021-01-17 11:23] LABS: Albumin 3.2 G/DL (3.4-5.0); Bilirubin,Total 0.5 MG/DL (0.2-1.0); Calcium 9.9 MG/DL (8.5-10.1); Osmolality,Calculated 290.4 MOS/KG (273-304); Potassium 3.8 MMOL/L (3.5-5.1); Total Protein 6.5 G/DL (5.0-7.5)
[2021-01-17] MEDS ORDERED: MORPHINE 4 MG/1 ML VIAL IV STA (11:30)
[2021-01-17] MEDS ORDERED: ENOXAPARIN 100 MG/ML SYRINGE SUBCUT STA (11:30)
[2021-01-17] MEDS ORDERED: ONDANSETRON 4 MG/2 ML VIAL IV STA (11:30)
[2021-01-17] MEDS ORDERED: ASPIRIN CHEW 81 MG TABLET PO STA (11:30)
[2021-01-17] MEDS ORDERED: ACETAMINOPHEN 325 MG TABLET PO PRN (16:05)
[2021-01-17] MEDS ORDERED: GLUCAGON 1 MG VIAL IM PRN (16:05)
[2021-01-17] MEDS ORDERED: DEXTROSE 50% 25 GM/50 ML VIAL IV PRN (16:05)
[2021-01-17] MEDS ORDERED: ONDANSETRON 4 MG/2 ML VIAL IV PRN (16:05)
[2021-01-17] MEDS ORDERED: SODIUM CHLORIDE 0.9% 1,000 ML IV SCH (16:05)
[2021-01-17] MEDS: cycloSPORINE OPH EMUL 1 VIAL BOTH EYES SCH (17:29)
[2021-01-17] MEDS: BUDESONIDE/FORMOTEROL 160-4.5 INHALER 6 GM INH SCH (17:30)
[2021-01-17] MEDS: INSULIN LISPRO 100 UNIT/ML SUBCUT SCH ×2 (17:31→22:28)
[2021-01-17] MEDS: APIXABAN 5 MG TABLET PO SCH (20:52)
[2021-01-17] MEDS: DOCUSATE SODIUM 100 MG CAPSULE PO SCH (20:52)
[2021-01-17] MEDS: PREGABALIN 75 MG CAPSULE PO SCH (20:52)
[2021-01-17] MEDS: SIMVASTATIN 20 MG TABLET PO SCH (20:52)
[2021-01-17] MEDS: DONEPEZIL 10 MG TABLET PO SCH (20:52)
[2021-01-18] MEDS: cycloSPORINE OPH EMUL 1 VIAL BOTH EYES SCH ×2 (03:56→19:15)
[2021-01-18] MEDS: BUDESONIDE/FORMOTEROL 160-4.5 INHALER 6 GM INH SCH ×2 (03:56→17:20)
[2021-01-18 06:15] LABS: Basophils # 0.1 10*3/uL (0.0-0.2); Basophils % 0.5 % (0.0-0.8); Eosinophils % 0.1 % (0.00-10.9); Hematocrit 38.6 VOL% (35.7-47.0); Hemoglobin 12.6 GM/DL (12.0-16.0); Immature Granulocytes % 0.7 %; Immature Granulocytes Absolute 0.09 #; Lymphocytes # 1.4 10*3/uL (1.4-4.0); Lymphocytes % 10.8 % (21.3-54.2); Mean Corpuscular HGB Conc 32.6 GM/DL (32-36); Mean Corpuscular Volume 96.7 FL (87-102); Mean Platelet Volume 10.9 FL (9.6-12.0); Monocytes % 11.8 % (1.7-12.7); Neutrophils % 76.1 % (38.7-73.9); Platelet Count 84 T/CUMM (130-400); Red Blood Count 3.99 MC/CUMM (3.8-5.5); Red Cell Distribution Width 13.2 % (9.3-17.3); White Blood Count 13.1 T/CUMM (4-12)
[2021-01-18 06:30] LABS: Calcium 10.4 MG/DL (8.5-10.1); Osmolality,Calculated 283.8 MOS/KG (273-304); Potassium 4.1 MMOL/L (3.5-5.1)
[2021-01-18 06:38] LABS: Hypochromasia 1+; Microcytosis 1+; Platelet Estimate Decreased
[2021-01-18 08:06] LABS: Troponin I 0.073 NG/ML (0.00-0.045)
[2021-01-18] MEDS: LEFLUNOMIDE 10 MG TABLET PO SCH (08:59)
[2021-01-18] MEDS: DOCUSATE SODIUM 100 MG CAPSULE PO SCH ×2 (08:59→20:49)
[2021-01-18] MEDS: TORSEMIDE 20 MG TABLET PO SCH (09:00)
[2021-01-18] MEDS: acetaZOLAMIDE 250 MG TABLET PO SCH (09:00)
[2021-01-18] MEDS: APIXABAN 5 MG TABLET PO SCH ×2 (09:01→20:48)
[2021-01-18] MEDS: FERROUS SULFATE 325 MG TABLET PO SCH (09:01)
[2021-01-18] MEDS: PANTOPRAZOLE 40 MG TABLET PO SCH (09:02)
[2021-01-18] MEDS: allopurinoL 300 MG TABLET PO SCH (09:03)
[2021-01-18] MEDS: INSULIN LISPRO 100 UNIT/ML SUBCUT SCH ×4 (09:03→21:44)
[2021-01-18] MEDS: FLUTICASONE 50 MCG NASAL SPRAY 16 GM BOTTLE BOTH NARES SCH (09:04)
[2021-01-18] MEDS: amLODIPine 5 MG TABLET PO SCH (09:06)
[2021-01-18] MEDS: LEVOTHYROXINE 112 MCG TABLET PO SCH (09:12)
[2021-01-18] MEDS: AMIODARONE 200 MG TABLET PO SCH (09:43)
[2021-01-18] MEDS: ASPIRIN EC 81 MG TABLET PO SCH (12:24)
[2021-01-18 12:54] LABS: Troponin I 0.054 NG/ML (0.00-0.045)
[2021-01-18 16:31] LABS: Bacteria,Urine Occasional /HPF (Few); Bilirubin,Urine Negative (Negative); Blood, Urine Small mg/dL (Negative); Glucose,Urine (UA) Negative (Negative); Ketones,Urine Negative (Negative); Nitrite,Urine Negative (Negative); Protein,Urine 100 MG/DL; RBC,Urine 3 /HPF (0-4); Squamous Epithelial Cell,Urine Occasional /HPF (0-10); Urine Appearance Slightly Hazy (Clear); Urine Color Yellow (Yellow); Urine Specific Gravity 1.009 (1.001-1.035); Urine Urobilinogen < 2.0 EU/DL (0.2-1.0); WBC,Urine 17 /HPF (0-6)
[2021-01-18] MEDS: SODIUM CHLORIDE 0.9% 1,000 ML IV SCH (17:22)
[2021-01-18] MEDS: DONEPEZIL 10 MG TABLET PO SCH (20:49)
[2021-01-18] MEDS: PREGABALIN 75 MG CAPSULE PO SCH (20:49)
[2021-01-18] MEDS: SIMVASTATIN 20 MG TABLET PO SCH (20:50)
[2021-01-19] MEDS: BUDESONIDE/FORMOTEROL 160-4.5 INHALER 6 GM INH SCH ×2 (03:36→16:07)
[2021-01-19] MEDS: cycloSPORINE OPH EMUL 1 VIAL BOTH EYES SCH ×2 (03:36→16:08)
[2021-01-19] MEDS: SODIUM CHLORIDE 0.9% 1,000 ML IV SCH ×2 (06:13→23:15)
[2021-01-19 06:55] LABS: Basophils % 0.3 % (0.0-0.8); Eosinophils % 0.3 % (0.00-10.9); Hematocrit 36.7 VOL% (35.7-47.0); Hemoglobin 11.7 GM/DL (12.0-16.0); Immature Granulocytes % 0.6 %; Immature Granulocytes Absolute 0.07 #; Lymphocytes # 1.3 10*3/uL (1.4-4.0); Lymphocytes % 10.7 % (21.3-54.2); Mean Corpuscular HGB Conc 31.9 GM/DL (32-36); Mean Corpuscular Volume 96.8 FL (87-102); Mean Platelet Volume 11.4 FL (9.6-12.0); Monocytes % 9.9 % (1.7-12.7); Neutrophils % 78.2 % (38.7-73.9); Red Blood Count 3.79 MC/CUMM (3.8-5.5); White Blood Count 11.9 T/CUMM (4-12)
[2021-01-19 06:57] LABS: Platelet Count 92 T/CUMM (130-400)
[2021-01-19 07:29] LABS: Calcium 9.7 MG/DL (8.5-10.1); Osmolality,Calculated 291.4 MOS/KG (273-304); Potassium 3.8 MMOL/L (3.5-5.1)
[2021-01-19] MEDS: LEFLUNOMIDE 10 MG TABLET PO SCH (08:25)
[2021-01-19] MEDS: DOCUSATE SODIUM 100 MG CAPSULE PO SCH ×2 (08:26→22:56)
[2021-01-19] MEDS: LEVOTHYROXINE 112 MCG TABLET PO SCH (08:26)
[2021-01-19] MEDS: ASPIRIN EC 81 MG TABLET PO SCH (08:26)
[2021-01-19] MEDS: APIXABAN 5 MG TABLET PO SCH ×2 (08:26→22:57)
[2021-01-19] MEDS: allopurinoL 300 MG TABLET PO SCH (08:27)
[2021-01-19] MEDS: FERROUS SULFATE 325 MG TABLET PO SCH (08:27)
[2021-01-19] MEDS: AMIODARONE 200 MG TABLET PO SCH (08:27)
[2021-01-19] MEDS: PANTOPRAZOLE 40 MG TABLET PO SCH (08:28)
[2021-01-19] MEDS: TORSEMIDE 20 MG TABLET PO SCH (08:28)
[2021-01-19] MEDS: acetaZOLAMIDE 250 MG TABLET PO SCH (08:29)
[2021-01-19] MEDS: amLODIPine 5 MG TABLET PO SCH (08:29)
[2021-01-19] MEDS: methylPREDNISolone SOD SUC 40 MG/1 ML VIAL IV SCH ×3 (08:30→23:00)
[2021-01-19] MEDS: INSULIN LISPRO 100 UNIT/ML SUBCUT SCH ×4 (09:04→22:58)
[2021-01-19] MEDS: FLUTICASONE 50 MCG NASAL SPRAY 16 GM BOTTLE BOTH NARES SCH (09:06)
[2021-01-19] MEDS: cefTRIAXone 1,000 MG in SYRINGE 1 EACH IV SCH (11:59)
[2021-01-19] MEDS: PREGABALIN 75 MG CAPSULE PO SCH (22:55)
[2021-01-19] MEDS: SIMVASTATIN 20 MG TABLET PO SCH (22:55)
[2021-01-19] MEDS: DONEPEZIL 10 MG TABLET PO SCH (22:57)
[2021-01-20] MEDS: INSULIN LISPRO 100 UNIT/ML SUBCUT SCH ×5 (02:34→21:58)
[2021-01-20] MEDS: SODIUM CHLORIDE 0.9% 1,000 ML IV SCH ×2 (06:13→18:03)
[2021-01-20] MEDS: LEVOTHYROXINE 112 MCG TABLET PO SCH (08:18)
[2021-01-20] MEDS: LEFLUNOMIDE 10 MG TABLET PO SCH (08:19)
[2021-01-20] MEDS: AMIODARONE 200 MG TABLET PO SCH (08:19)
[2021-01-20] MEDS: APIXABAN 5 MG TABLET PO SCH ×2 (08:19→21:50)
[2021-01-20] MEDS: DOCUSATE SODIUM 100 MG CAPSULE PO SCH ×2 (08:19→21:50)
[2021-01-20] MEDS: cycloSPORINE OPH EMUL 1 VIAL BOTH EYES SCH ×2 (08:19→21:56)
[2021-01-20] MEDS: acetaZOLAMIDE 250 MG TABLET PO SCH (08:19)
[2021-01-20] MEDS: ASPIRIN EC 81 MG TABLET PO SCH (08:19)
[2021-01-20] MEDS: allopurinoL 300 MG TABLET PO SCH (08:20)
[2021-01-20] MEDS: FERROUS SULFATE 325 MG TABLET PO SCH (08:20)
[2021-01-20] MEDS: amLODIPine 5 MG TABLET PO SCH (08:20)
[2021-01-20] MEDS: PANTOPRAZOLE 40 MG TABLET PO SCH (08:20)
[2021-01-20] MEDS: TORSEMIDE 20 MG TABLET PO SCH (08:20)
[2021-01-20] MEDS: methylPREDNISolone SOD SUC 40 MG/1 ML VIAL IV SCH ×2 (08:20→21:54)
[2021-01-20] MEDS: FLUTICASONE 50 MCG NASAL SPRAY 16 GM BOTTLE BOTH NARES SCH (09:27)
[2021-01-20] MEDS: BUDESONIDE/FORMOTEROL 160-4.5 INHALER 6 GM INH SCH ×2 (09:28→21:52)
[2021-01-20] MEDS: cefTRIAXone 1,000 MG in SYRINGE 1 EACH IV SCH (11:18)
[2021-01-20] MEDS: PREGABALIN 75 MG CAPSULE PO SCH (21:49)
[2021-01-20] MEDS: DONEPEZIL 10 MG TABLET PO SCH (21:50)
[2021-01-20] MEDS: SIMVASTATIN 20 MG TABLET PO SCH (21:50)
[2021-01-21 06:17] LABS: Hematocrit 35.8 VOL% (35.7-47.0); Hemoglobin 11.6 GM/DL (12.0-16.0); Immature Granulocytes % 0.6 %; Immature Granulocytes Absolute 0.06 #; Lymphocytes # 0.6 10*3/uL (1.4-4.0); Lymphocytes % 6.5 % (21.3-54.2); Mean Corpuscular HGB Conc 32.4 GM/DL (32-36); Mean Corpuscular Volume 95.2 FL (87-102); Mean Platelet Volume 11.7 FL (9.6-12.0); Monocytes % 2.9 % (1.7-12.7); Red Blood Count 3.76 MC/CUMM (3.8-5.5); Red Cell Distribution Width 12.8 % (9.3-17.3); White Blood Count 9.4 T/CUMM (4-12)
[2021-01-21 06:24] LABS: Platelet Count 119 T/CUMM (130-400)
[2021-01-21 06:42] LABS: Calcium 9.9 MG/DL (8.5-10.1); Osmolality,Calculated 308.8 MOS/KG (273-304)
[2021-01-21] MEDS: INSULIN LISPRO 100 UNIT/ML SUBCUT SCH ×4 (08:35→22:02)
[2021-01-21] MEDS: AMIODARONE 200 MG TABLET PO SCH (08:36)
[2021-01-21] MEDS: ASPIRIN EC 81 MG TABLET PO SCH (08:36)
[2021-01-21] MEDS: FERROUS SULFATE 325 MG TABLET PO SCH (08:36)
[2021-01-21] MEDS: PANTOPRAZOLE 40 MG TABLET PO SCH (08:36)
[2021-01-21] MEDS: LEVOTHYROXINE 112 MCG TABLET PO SCH (08:36)
[2021-01-21] MEDS: cycloSPORINE OPH EMUL 1 VIAL BOTH EYES SCH ×2 (08:36→22:09)
[2021-01-21] MEDS: DOCUSATE SODIUM 100 MG CAPSULE PO SCH ×2 (08:36→22:00)
[2021-01-21] MEDS: APIXABAN 5 MG TABLET PO SCH ×2 (08:36→22:00)
[2021-01-21] MEDS: acetaZOLAMIDE 250 MG TABLET PO SCH (08:36)
[2021-01-21] MEDS: LEFLUNOMIDE 10 MG TABLET PO SCH (08:36)
[2021-01-21] MEDS: amLODIPine 5 MG TABLET PO SCH (08:37)
[2021-01-21] MEDS: methylPREDNISolone SOD SUC 40 MG/1 ML VIAL IV SCH (08:37)
[2021-01-21] MEDS: allopurinoL 300 MG TABLET PO SCH (08:37)
[2021-01-21] MEDS: TORSEMIDE 20 MG TABLET PO SCH (08:37)
[2021-01-21] MEDS: BUDESONIDE/FORMOTEROL 160-4.5 INHALER 6 GM INH SCH ×2 (08:42→22:03)
[2021-01-21] MEDS: FLUTICASONE 50 MCG NASAL SPRAY 16 GM BOTTLE BOTH NARES SCH (08:42)
[2021-01-21] MEDS: SODIUM CHLORIDE 0.9% 1,000 ML IV SCH ×3 (08:45→23:59)
[2021-01-21] MEDS: cefTRIAXone 1,000 MG in SYRINGE 1 EACH IV SCH (11:50)
[2021-01-21] MEDS: PREGABALIN 75 MG CAPSULE PO SCH (22:00)
[2021-01-21] MEDS: SIMVASTATIN 20 MG TABLET PO SCH (22:00)
[2021-01-21] MEDS: DONEPEZIL 10 MG TABLET PO SCH (22:01)
[2021-01-22] MEDS: LEVOTHYROXINE 112 MCG TABLET PO SCH (09:53)
[2021-01-22] MEDS: ASPIRIN EC 81 MG TABLET PO SCH (09:53)
[2021-01-22] MEDS: DOCUSATE SODIUM 100 MG CAPSULE PO SCH ×2 (09:53→23:53)
[2021-01-22] MEDS: LEFLUNOMIDE 10 MG TABLET PO SCH (09:53)
[2021-01-22] MEDS: predniSONE 20 MG TABLET PO SCH (09:54)
[2021-01-22] MEDS: allopurinoL 300 MG TABLET PO SCH (09:54)
[2021-01-22] MEDS: acetaZOLAMIDE 250 MG TABLET PO SCH (09:54)
[2021-01-22] MEDS: TORSEMIDE 20 MG TABLET PO SCH (09:54)
[2021-01-22] MEDS: APIXABAN 5 MG TABLET PO SCH ×2 (09:55→23:53)
[2021-01-22] MEDS: FERROUS SULFATE 325 MG TABLET PO SCH (09:55)
[2021-01-22] MEDS: PANTOPRAZOLE 40 MG TABLET PO SCH (09:55)
[2021-01-22] MEDS: AMIODARONE 200 MG TABLET PO SCH (09:55)
[2021-01-22] MEDS: amLODIPine 5 MG TABLET PO SCH (09:55)
[2021-01-22] MEDS: cycloSPORINE OPH EMUL 1 VIAL BOTH EYES SCH ×2 (09:56→23:59)
[2021-01-22] MEDS: FLUTICASONE 50 MCG NASAL SPRAY 16 GM BOTTLE BOTH NARES SCH (09:56)
[2021-01-22] MEDS: BUDESONIDE/FORMOTEROL 160-4.5 INHALER 6 GM INH SCH ×2 (09:56→23:56)
[2021-01-22] MEDS: INSULIN LISPRO 100 UNIT/ML SUBCUT SCH ×4 (09:57→23:59)
[2021-01-22] MEDS: cefTRIAXone 1,000 MG in SYRINGE 1 EACH IV SCH (12:48)
[2021-01-22] MEDS: SODIUM CHLORIDE 0.9% 1,000 ML IV SCH (15:16)
[2021-01-22] MEDS: SIMVASTATIN 20 MG TABLET PO SCH (23:53)
[2021-01-22] MEDS: DONEPEZIL 10 MG TABLET PO SCH (23:54)
[2021-01-22] MEDS: PREGABALIN 75 MG CAPSULE PO SCH (23:55)
[2021-01-23] MEDS: SODIUM CHLORIDE 0.9% 1,000 ML IV SCH ×2 (00:19→03:34)
[2021-01-23] MEDS: INSULIN LISPRO 100 UNIT/ML SUBCUT SCH ×4 (09:10→23:17)
[2021-01-23] MEDS: FLUTICASONE 50 MCG NASAL SPRAY 16 GM BOTTLE BOTH NARES SCH (09:11)
[2021-01-23] MEDS: cycloSPORINE OPH EMUL 1 VIAL BOTH EYES SCH ×2 (09:11→22:34)
[2021-01-23] MEDS: BUDESONIDE/FORMOTEROL 160-4.5 INHALER 6 GM INH SCH ×2 (09:11→22:35)
[2021-01-23] MEDS: predniSONE 20 MG TABLET PO SCH (09:12)
[2021-01-23] MEDS: PANTOPRAZOLE 40 MG TABLET PO SCH (09:12)
[2021-01-23] MEDS: acetaZOLAMIDE 250 MG TABLET PO SCH (09:12)
[2021-01-23] MEDS: DOCUSATE SODIUM 100 MG CAPSULE PO SCH ×2 (09:12→22:34)
[2021-01-23] MEDS: ASPIRIN EC 81 MG TABLET PO SCH (09:12)
[2021-01-23] MEDS: AMIODARONE 200 MG TABLET PO SCH (09:12)
[2021-01-23] MEDS: LEVOTHYROXINE 112 MCG TABLET PO SCH (09:13)
[2021-01-23] MEDS: amLODIPine 5 MG TABLET PO SCH (09:13)
[2021-01-23] MEDS: APIXABAN 5 MG TABLET PO SCH ×2 (09:13→22:35)
[2021-01-23] MEDS: TORSEMIDE 20 MG TABLET PO SCH (09:13)
[2021-01-23] MEDS: FERROUS SULFATE 325 MG TABLET PO SCH (09:13)
[2021-01-23] MEDS: allopurinoL 300 MG TABLET PO SCH (09:13)
[2021-01-23] MEDS: LEFLUNOMIDE 10 MG TABLET PO SCH (09:14)
[2021-01-23] MEDS: FUROSEMIDE 40 MG/4 ML VIAL IV ONE ×2 (10:31→10:42)
[2021-01-23] MEDS: cefTRIAXone 1,000 MG in SYRINGE 1 EACH IV SCH (10:32)
[2021-01-23] MEDS: PREGABALIN 75 MG CAPSULE PO SCH (22:34)
[2021-01-23] MEDS: DONEPEZIL 10 MG TABLET PO SCH (22:35)
[2021-01-23] MEDS: SIMVASTATIN 20 MG TABLET PO SCH (22:35)
[2021-01-24 06:30] LABS: Eosinophils % 0.2 % (0.00-10.9); Hematocrit 35.4 VOL% (35.7-47.0); Hemoglobin 11.5 GM/DL (12.0-16.0); Immature Granulocytes % 0.5 %; Immature Granulocytes Absolute 0.03 #; Lymphocytes # 0.8 10*3/uL (1.4-4.0); Mean Corpuscular HGB Conc 32.5 GM/DL (32-36); Mean Corpuscular Volume 94.9 FL (87-102); Mean Platelet Volume 11.1 FL (9.6-12.0); Monocytes % 10.7 % (1.7-12.7); Neutrophils % 76.6 % (38.7-73.9); Platelet Count 174 T/CUMM (130-400); Red Blood Count 3.73 MC/CUMM (3.8-5.5); White Blood Count 6.6 T/CUMM (4-12)
[2021-01-24 06:47] LABS: Calcium 9.6 MG/DL (8.5-10.1); Potassium 3.3 MMOL/L (3.5-5.1)
[2021-01-24] MEDS: INSULIN LISPRO 100 UNIT/ML SUBCUT SCH ×2 (08:52→12:09)
[2021-01-24] MEDS: ASPIRIN EC 81 MG TABLET PO SCH (08:53)
[2021-01-24] MEDS: TORSEMIDE 20 MG TABLET PO SCH (08:53)
[2021-01-24] MEDS: cycloSPORINE OPH EMUL 1 VIAL BOTH EYES SCH (08:53)
[2021-01-24] MEDS: LEFLUNOMIDE 10 MG TABLET PO SCH (08:53)
[2021-01-24] MEDS: LEVOTHYROXINE 112 MCG TABLET PO SCH (08:53)
[2021-01-24] MEDS: acetaZOLAMIDE 250 MG TABLET PO SCH (08:53)
[2021-01-24] MEDS: amLODIPine 5 MG TABLET PO SCH (08:53)
[2021-01-24] MEDS: predniSONE 20 MG TABLET PO SCH (08:53)
[2021-01-24] MEDS: FERROUS SULFATE 325 MG TABLET PO SCH (08:54)
[2021-01-24] MEDS: APIXABAN 5 MG TABLET PO SCH (08:54)
[2021-01-24] MEDS: allopurinoL 300 MG TABLET PO SCH (08:54)
[2021-01-24] MEDS: DOCUSATE SODIUM 100 MG CAPSULE PO SCH (08:54)
[2021-01-24] MEDS: FLUTICASONE 50 MCG NASAL SPRAY 16 GM BOTTLE BOTH NARES SCH (08:54)
[2021-01-24] MEDS: AMIODARONE 200 MG TABLET PO SCH (08:54)
[2021-01-24] MEDS: PANTOPRAZOLE 40 MG TABLET PO SCH (08:54)
[2021-01-24] MEDS: BUDESONIDE/FORMOTEROL 160-4.5 INHALER 6 GM INH SCH (08:55)
[2021-01-24] MEDS: cefTRIAXone 1,000 MG in SYRINGE 1 EACH IV SCH (12:08)
[2021-01-24 15:43] VITALS: BP 133/74
== END 2021-01-24 16:08 | disposition swing bed (61) ==
LOC: N.ED 08:46 → N.EDINP 08:46 → SUATTDRO 13:12 → N.TELEN 14:21 → SUATTDRO 01-19 07:39
PROVIDERS: ADMIT Family Medicine; ATTEND Internal Medicine

== ENCOUNTER 2021-01-31 20:22 | Observation (INO) ==
[2021-01-31 22:50] LABS: Basophils % 0.3 % (0.0-0.8); Eosinophils # 0.1 10*3/uL (0.0-0.87); Eosinophils % 0.9 % (0.00-10.9); Hemoglobin 11.5 GM/DL (12.0-16.0); Immature Granulocytes % 0.6 %; Immature Granulocytes Absolute 0.06 #; Lymphocytes # 0.7 10*3/uL (1.4-4.0); Lymphocytes % 7.1 % (21.3-54.2); Mean Corpuscular HGB Conc 31.9 GM/DL (32-36); Mean Corpuscular Volume 94.5 FL (87-102); Mean Platelet Volume 10.7 FL (9.6-12.0); Monocytes % 10.8 % (1.7-12.7); Neutrophils % 80.3 % (38.7-73.9); Platelet Count 229 T/CUMM (130-400); Red Blood Count 3.81 MC/CUMM (3.8-5.5); Red Cell Distribution Width 13.3 % (9.3-17.3); White Blood Count 9.9 T/CUMM (4-12)
[2021-01-31 23:00] LABS: PT Patient Result 11.2 SECS (9.8-11.9)
[2021-01-31 23:01] LABS: Bacteria,Urine Occasional /HPF (Few); Bilirubin,Urine Negative (Negative); Blood, Urine Negative (Negative); Glucose,Urine (UA) Negative (Negative); Hyaline Casts,Urine 4 /LPF (0-3); Ketones,Urine 5 mg/dL (Negative); Mucus,Urine Occasional /LPF (Occasional); Nitrite,Urine Negative (Negative); Protein,Urine 100 MG/DL; RBC,Urine 3 /HPF (0-4); Squamous Epithelial Cell,Urine Occasional /HPF (0-10); Urine Appearance CLEAR (Clear); Urine Color Yellow (Yellow); Urine Specific Gravity 1.016 (1.001-1.035); Urine Urobilinogen < 2.0 EU/DL (0.2-1.0); WBC,Urine 1 /HPF (0-6)
[2021-01-31 23:16] LABS: Alanine Aminotransferase 12 U/L (13-56); Albumin 2.2 G/DL (3.4-5.0); Alkaline Phosphatase 102 U/L (45-117); Aspartate Amino Transferase 14 U/L (0-37); Blood Urea Nitrogen 29 MG/DL (7-18); Calcium 11.1 MG/DL (8.5-10.1); Carbon Dioxide 22 MMOL/L (21-32); Estimated Glom Filtration Rate 44 ML/MIN; Glucose 263 MG/DL (74-106); Osmolality,Calculated 293.4 MOS/KG (273-304); Potassium 4.1 MMOL/L (3.5-5.1); Sodium 140 MMOL/L (136-145); Troponin I 0.022 NG/ML (0.00-0.045)
[2021-02-01] MEDS ORDERED: GLUCAGON 1 MG VIAL IM PRN (03:35)
[2021-02-01] MEDS ORDERED: DEXTROSE 50% 25 GM/50 ML VIAL IV PRN (03:35)
[2021-02-01] MEDS ORDERED: ACETAMINOPHEN 325 MG TABLET PO PRN (03:35)
[2021-02-01] MEDS ORDERED: ONDANSETRON 4 MG/2 ML VIAL IV PRN (03:35)
[2021-02-01] MEDS ORDERED: DOCUSATE SODIUM 100 MG CAPSULE PO PRN (03:35)
[2021-02-01] MEDS: LEVOTHYROXINE 112 MCG TABLET PO SCH (06:20)
[2021-02-01] MEDS: INSULIN LISPRO 100 UNIT/ML SUBCUT SCH ×4 (07:30→21:10)
[2021-02-01] MEDS: CYANOCOBALAMIN 5000 MCG PO SCH (09:00)
[2021-02-01] MEDS: IPRATROPIUM 500 MCG/2.5 ML NEB RESP TX SCH ×2 (09:38→19:22)
[2021-02-01] MEDS ORDERED: TUBERCULIN SKIN TEST 0.1 ML SYRINGE INTRADERM ONE (10:47)
[2021-02-01] MEDS: LEFLUNOMIDE 10 MG TABLET PO SCH (11:11)
[2021-02-01] MEDS: ASPIRIN EC 81 MG TABLET PO SCH (11:11)
[2021-02-01] MEDS: MULTIVITAMIN (CENTRUM) TABLET PO SCH (11:11)
[2021-02-01] MEDS: TORSEMIDE 20 MG TABLET PO SCH (11:12)
[2021-02-01] MEDS: acetaZOLAMIDE 250 MG TABLET PO SCH (11:12)
[2021-02-01] MEDS: APIXABAN 5 MG TABLET PO SCH ×2 (11:12→21:11)
[2021-02-01] MEDS: NITROFURANTOIN MACRO/MONO 100 MG CAPSULE PO SCH ×2 (11:13→21:11)
[2021-02-01] MEDS: sitaGLIPtin 25 MG TABLET PO SCH (11:13)
[2021-02-01] MEDS: FERROUS SULFATE 325 MG TABLET PO SCH (11:13)
[2021-02-01] MEDS: MAGNESIUM OXIDE 400 MG TABLET PO SCH ×2 (11:13→21:14)
[2021-02-01] MEDS: POTASSIUM CHLORIDE 20 MEQ/15 ML UDCUP PO SCH (11:14)
[2021-02-01] MEDS: PANTOPRAZOLE 40 MG TABLET PO SCH (11:14)
[2021-02-01] MEDS: amLODIPine 5 MG TABLET PO SCH (11:14)
[2021-02-01] MEDS: MONTELUKAST 10 MG TABLET PO SCH ×2 (11:15→21:11)
[2021-02-01] MEDS: cycloSPORINE OPH EMUL 1 VIAL BOTH EYES SCH ×2 (11:15→21:11)
[2021-02-01] MEDS: allopurinoL 300 MG TABLET PO SCH (11:16)
[2021-02-01] MEDS: BUDESONIDE/FORMOTEROL 160-4.5 INHALER 6 GM INH SCH ×2 (11:16→21:10)
[2021-02-01] MEDS: FLUTICASONE 50 MCG NASAL SPRAY 16 GM BOTTLE BOTH NARES SCH (11:17)
[2021-02-01] MEDS: INSULIN GLARGINE 100 UNIT/ML SUBCUT SCH (11:53)
[2021-02-01] MEDS ORDERED: DONEPEZIL 10 MG TABLET PO SCH (21:00)
[2021-02-01] MEDS: PREGABALIN 75 MG CAPSULE PO SCH (21:11)
[2021-02-01] MEDS: SIMVASTATIN 20 MG TABLET PO SCH (21:13)
[2021-02-02 05:18] LABS: Basophils % 0.4 % (0.0-0.8); Eosinophils # 0.2 10*3/uL (0.0-0.87); Eosinophils % 2.2 % (0.00-10.9); Hematocrit 33.2 VOL% (35.7-47.0); Hemoglobin 10.8 GM/DL (12.0-16.0); Immature Granulocytes % 0.3 %; Immature Granulocytes Absolute 0.02 #; Lymphocytes # 1.1 10*3/uL (1.4-4.0); Lymphocytes % 16.3 % (21.3-54.2); Mean Corpuscular HGB Conc 32.5 GM/DL (32-36); Mean Platelet Volume 10.7 FL (9.6-12.0); Monocytes % 12.5 % (1.7-12.7); Neutrophils % 68.3 % (38.7-73.9); Platelet Count 189 T/CUMM (130-400); Red Blood Count 3.57 MC/CUMM (3.8-5.5); Red Cell Distribution Width 13.2 % (9.3-17.3); White Blood Count 6.8 T/CUMM (4-12)
[2021-02-02 05:40] LABS: Calcium 10.8 MG/DL (8.5-10.1); Osmolality,Calculated 288.1 MOS/KG (273-304); Potassium 3.6 MMOL/L (3.5-5.1)
[2021-02-02] MEDS: LEVOTHYROXINE 112 MCG TABLET PO SCH (05:51)
[2021-02-02] MEDS: IPRATROPIUM 500 MCG/2.5 ML NEB RESP TX SCH ×2 (07:10→20:23)
[2021-02-02] MEDS: FLUTICASONE 50 MCG NASAL SPRAY 16 GM BOTTLE BOTH NARES SCH (09:16)
[2021-02-02] MEDS: BUDESONIDE/FORMOTEROL 160-4.5 INHALER 6 GM INH SCH ×2 (09:16→21:01)
[2021-02-02] MEDS: PANTOPRAZOLE 40 MG TABLET PO SCH (09:17)
[2021-02-02] MEDS: AMIODARONE 200 MG TABLET PO SCH (09:17)
[2021-02-02] MEDS: LEFLUNOMIDE 10 MG TABLET PO SCH (09:17)
[2021-02-02] MEDS: ASPIRIN EC 81 MG TABLET PO SCH (09:17)
[2021-02-02] MEDS: NITROFURANTOIN MACRO/MONO 100 MG CAPSULE PO SCH ×2 (09:17→21:01)
[2021-02-02] MEDS: MAGNESIUM OXIDE 400 MG TABLET PO SCH ×2 (09:17→21:00)
[2021-02-02] MEDS: acetaZOLAMIDE 250 MG TABLET PO SCH (09:17)
[2021-02-02] MEDS: MONTELUKAST 10 MG TABLET PO SCH ×2 (09:18→21:00)
[2021-02-02] MEDS: FERROUS SULFATE 325 MG TABLET PO SCH (09:18)
[2021-02-02] MEDS: MULTIVITAMIN (CENTRUM) TABLET PO SCH (09:18)
[2021-02-02] MEDS: allopurinoL 300 MG TABLET PO SCH (09:18)
[2021-02-02] MEDS: APIXABAN 5 MG TABLET PO SCH ×2 (09:18→21:00)
[2021-02-02] MEDS: sitaGLIPtin 25 MG TABLET PO SCH (09:18)
[2021-02-02] MEDS: TORSEMIDE 20 MG TABLET PO SCH (09:19)
[2021-02-02] MEDS: amLODIPine 5 MG TABLET PO SCH (09:19)
[2021-02-02] MEDS: cycloSPORINE OPH EMUL 1 VIAL BOTH EYES SCH ×2 (09:19→21:02)
[2021-02-02] MEDS: INSULIN GLARGINE 100 UNIT/ML SUBCUT SCH (09:19)
[2021-02-02] MEDS: POTASSIUM CHLORIDE 20 MEQ/15 ML UDCUP PO SCH (09:20)
[2021-02-02] MEDS: INSULIN LISPRO 100 UNIT/ML SUBCUT SCH ×4 (11:02→20:59)
[2021-02-02] MEDS: DESITIN 4OZ/NYSTATIN 15 GRAM MIXTURE PASTE TOP SCH ×2 (15:43→21:33)
[2021-02-02] MEDS: CYANOCOBALAMIN 5000 MCG PO SCH (15:44)
[2021-02-02] MEDS: PREGABALIN 75 MG CAPSULE PO SCH (21:01)
[2021-02-02] MEDS: SIMVASTATIN 20 MG TABLET PO SCH (21:02)
[2021-02-03] MEDS: LEVOTHYROXINE 112 MCG TABLET PO SCH (06:01)
[2021-02-03 06:06] LABS: Calcium 10.7 MG/DL (8.5-10.1); Osmolality,Calculated 287.3 MOS/KG (273-304); Potassium 3.7 MMOL/L (3.5-5.1)
[2021-02-03] MEDS: IPRATROPIUM 500 MCG/2.5 ML NEB RESP TX SCH ×2 (07:30→19:39)
[2021-02-03] MEDS: BUDESONIDE/FORMOTEROL 160-4.5 INHALER 6 GM INH SCH ×2 (09:12→20:36)
[2021-02-03] MEDS: FLUTICASONE 50 MCG NASAL SPRAY 16 GM BOTTLE BOTH NARES SCH (09:13)
[2021-02-03] MEDS: POTASSIUM CHLORIDE 20 MEQ/15 ML UDCUP PO SCH (09:14)
[2021-02-03] MEDS: DESITIN 4OZ/NYSTATIN 15 GRAM MIXTURE PASTE TOP SCH ×2 (09:14→20:36)
[2021-02-03] MEDS: INSULIN GLARGINE 100 UNIT/ML SUBCUT SCH (09:14)
[2021-02-03] MEDS: NITROFURANTOIN MACRO/MONO 100 MG CAPSULE PO SCH ×2 (09:15→20:37)
[2021-02-03] MEDS: MAGNESIUM OXIDE 400 MG TABLET PO SCH ×2 (09:15→20:37)
[2021-02-03] MEDS: APIXABAN 5 MG TABLET PO SCH ×2 (09:15→20:37)
[2021-02-03] MEDS: MULTIVITAMIN (CENTRUM) TABLET PO SCH (09:15)
[2021-02-03] MEDS: sitaGLIPtin 25 MG TABLET PO SCH (09:15)
[2021-02-03] MEDS: MONTELUKAST 10 MG TABLET PO SCH ×2 (09:15→20:37)
[2021-02-03] MEDS: LEFLUNOMIDE 10 MG TABLET PO SCH (09:15)
[2021-02-03] MEDS: acetaZOLAMIDE 250 MG TABLET PO SCH (09:15)
[2021-02-03] MEDS: ASPIRIN EC 81 MG TABLET PO SCH (09:16)
[2021-02-03] MEDS: FERROUS SULFATE 325 MG TABLET PO SCH (09:16)
[2021-02-03] MEDS: amLODIPine 5 MG TABLET PO SCH (09:16)
[2021-02-03] MEDS: TORSEMIDE 20 MG TABLET PO SCH (09:16)
[2021-02-03] MEDS: allopurinoL 300 MG TABLET PO SCH (09:16)
[2021-02-03] MEDS: PANTOPRAZOLE 40 MG TABLET PO SCH (09:16)
[2021-02-03] MEDS: cycloSPORINE OPH EMUL 1 VIAL BOTH EYES SCH ×2 (09:17→20:37)
[2021-02-03] MEDS: INSULIN LISPRO 100 UNIT/ML SUBCUT SCH ×4 (10:47→20:36)
[2021-02-03] MEDS: CYANOCOBALAMIN 5000 MCG PO SCH (10:47)
[2021-02-03] MEDS: SIMVASTATIN 20 MG TABLET PO SCH (20:37)
[2021-02-03] MEDS: PREGABALIN 75 MG CAPSULE PO SCH (20:37)
[2021-02-04 05:52] LABS: Basophils % 0.6 % (0.0-0.8); Eosinophils # 0.2 10*3/uL (0.0-0.87); Eosinophils % 3.4 % (0.00-10.9); Hematocrit 34.5 VOL% (35.7-47.0); Hemoglobin 10.7 GM/DL (12.0-16.0); Immature Granulocytes % 0.3 %; Immature Granulocytes Absolute 0.02 #; Lymphocytes # 1.3 10*3/uL (1.4-4.0); Lymphocytes % 20.4 % (21.3-54.2); Mean Corpuscular Volume 95.8 FL (87-102); Mean Platelet Volume 10.7 FL (9.6-12.0); Monocytes % 10.8 % (1.7-12.7); Neutrophils % 64.5 % (38.7-73.9); Platelet Count 186 T/CUMM (130-400); Red Cell Distribution Width 13.1 % (9.3-17.3); White Blood Count 6.2 T/CUMM (4-12)
[2021-02-04] MEDS: LEVOTHYROXINE 112 MCG TABLET PO SCH (06:02)
[2021-02-04 06:37] LABS: Calcium 10.5 MG/DL (8.5-10.1); Osmolality,Calculated 294.1 MOS/KG (273-304); Potassium 4.1 MMOL/L (3.5-5.1)
[2021-02-04] MEDS: IPRATROPIUM 500 MCG/2.5 ML NEB RESP TX SCH ×2 (06:50→19:35)
[2021-02-04] MEDS: INSULIN LISPRO 100 UNIT/ML SUBCUT SCH ×4 (09:07→21:10)
[2021-02-04] MEDS: NITROFURANTOIN MACRO/MONO 100 MG CAPSULE PO SCH ×2 (09:08→21:10)
[2021-02-04] MEDS: allopurinoL 300 MG TABLET PO SCH (09:08)
[2021-02-04] MEDS: MAGNESIUM OXIDE 400 MG TABLET PO SCH ×2 (09:08→21:10)
[2021-02-04] MEDS: sitaGLIPtin 25 MG TABLET PO SCH (09:08)
[2021-02-04] MEDS: amLODIPine 5 MG TABLET PO SCH (09:08)
[2021-02-04] MEDS: FERROUS SULFATE 325 MG TABLET PO SCH (09:09)
[2021-02-04] MEDS: LEFLUNOMIDE 10 MG TABLET PO SCH (09:09)
[2021-02-04] MEDS: APIXABAN 5 MG TABLET PO SCH ×2 (09:09→21:10)
[2021-02-04] MEDS: TORSEMIDE 20 MG TABLET PO SCH (09:09)
[2021-02-04] MEDS: PANTOPRAZOLE 40 MG TABLET PO SCH (09:09)
[2021-02-04] MEDS: acetaZOLAMIDE 250 MG TABLET PO SCH (09:09)
[2021-02-04] MEDS: ASPIRIN EC 81 MG TABLET PO SCH (09:09)
[2021-02-04] MEDS: POTASSIUM CHLORIDE 20 MEQ/15 ML UDCUP PO SCH (09:10)
[2021-02-04] MEDS: MULTIVITAMIN (CENTRUM) TABLET PO SCH (09:11)
[2021-02-04] MEDS: INSULIN GLARGINE 100 UNIT/ML SUBCUT SCH (09:11)
[2021-02-04] MEDS: FLUTICASONE 50 MCG NASAL SPRAY 16 GM BOTTLE BOTH NARES SCH (09:11)
[2021-02-04] MEDS: CYANOCOBALAMIN 5000 MCG PO SCH (09:11)
[2021-02-04] MEDS: BUDESONIDE/FORMOTEROL 160-4.5 INHALER 6 GM INH SCH ×2 (09:12→21:09)
[2021-02-04] MEDS: DESITIN 4OZ/NYSTATIN 15 GRAM MIXTURE PASTE TOP SCH ×2 (09:12→21:09)
[2021-02-04] MEDS: MONTELUKAST 10 MG TABLET PO SCH ×2 (09:12→21:10)
[2021-02-04] MEDS: cycloSPORINE OPH EMUL 1 VIAL BOTH EYES SCH ×2 (09:12→21:09)
[2021-02-04] MEDS: SODIUM CHLORIDE 0.9% 1,000 ML IV SCH (10:00)
[2021-02-04 14:20] LABS: Basophils % 0.7 % (0.0-0.8); Eosinophils # 0.2 10*3/uL (0.0-0.87); Eosinophils % 3.2 % (0.00-10.9); Hematocrit 33.6 VOL% (35.7-47.0); Hemoglobin 10.3 GM/DL (12.0-16.0); Immature Granulocytes % 0.5 %; Immature Granulocytes Absolute 0.03 #; Lymphocytes # 0.9 10*3/uL (1.4-4.0); Lymphocytes % 16.3 % (21.3-54.2); Mean Corpuscular HGB Conc 30.7 GM/DL (32-36); Mean Platelet Volume 10.7 FL (9.6-12.0); Monocytes % 10.2 % (1.7-12.7); Neutrophils % 69.1 % (38.7-73.9); Platelet Count 206 T/CUMM (130-400); White Blood Count 5.6 T/CUMM (4-12)
[2021-02-04 14:36] LABS: Calcium 10.3 MG/DL (8.5-10.1); Osmolality,Calculated 295.3 MOS/KG (273-304); Potassium 4.1 MMOL/L (3.5-5.1)
[2021-02-04] MEDS: PREGABALIN 75 MG CAPSULE PO SCH (21:10)
[2021-02-04] MEDS: SIMVASTATIN 20 MG TABLET PO SCH (21:10)
[2021-02-05] MEDS: SODIUM CHLORIDE 0.9% 1,000 ML IV SCH ×2 (02:15→18:39)
[2021-02-05] MEDS: LEVOTHYROXINE 112 MCG TABLET PO SCH (05:57)
[2021-02-05 06:18] LABS: Calcium 10.2 MG/DL (8.5-10.1); Potassium 3.6 MMOL/L (3.5-5.1)
[2021-02-05] MEDS: IPRATROPIUM 500 MCG/2.5 ML NEB RESP TX SCH ×2 (07:08→19:53)
[2021-02-05] MEDS: INSULIN GLARGINE 100 UNIT/ML SUBCUT SCH (09:06)
[2021-02-05] MEDS: BUDESONIDE/FORMOTEROL 160-4.5 INHALER 6 GM INH SCH ×2 (09:06→20:52)
[2021-02-05] MEDS: INSULIN LISPRO 100 UNIT/ML SUBCUT SCH ×4 (09:06→20:51)
[2021-02-05] MEDS: amLODIPine 5 MG TABLET PO SCH (09:07)
[2021-02-05] MEDS: APIXABAN 5 MG TABLET PO SCH ×2 (09:07→20:51)
[2021-02-05] MEDS: cycloSPORINE OPH EMUL 1 VIAL BOTH EYES SCH ×2 (09:07→20:51)
[2021-02-05] MEDS: ASPIRIN EC 81 MG TABLET PO SCH (09:07)
[2021-02-05] MEDS: MULTIVITAMIN (CENTRUM) TABLET PO SCH (09:07)
[2021-02-05] MEDS: allopurinoL 300 MG TABLET PO SCH (09:07)
[2021-02-05] MEDS: sitaGLIPtin 25 MG TABLET PO SCH (09:07)
[2021-02-05] MEDS: POTASSIUM CHLORIDE 20 MEQ/15 ML UDCUP PO SCH (09:07)
[2021-02-05] MEDS: MAGNESIUM OXIDE 400 MG TABLET PO SCH ×2 (09:07→20:50)
[2021-02-05] MEDS: DESITIN 4OZ/NYSTATIN 15 GRAM MIXTURE PASTE TOP SCH ×2 (09:07→20:51)
[2021-02-05] MEDS: NITROFURANTOIN MACRO/MONO 100 MG CAPSULE PO SCH ×2 (09:08→20:50)
[2021-02-05] MEDS: MONTELUKAST 10 MG TABLET PO SCH ×2 (09:08→20:50)
[2021-02-05] MEDS: LEFLUNOMIDE 10 MG TABLET PO SCH (09:08)
[2021-02-05] MEDS: TORSEMIDE 20 MG TABLET PO SCH (09:08)
[2021-02-05] MEDS: AMIODARONE 200 MG TABLET PO SCH (09:08)
[2021-02-05] MEDS: FERROUS SULFATE 325 MG TABLET PO SCH (09:08)
[2021-02-05] MEDS: acetaZOLAMIDE 250 MG TABLET PO SCH (09:08)
[2021-02-05] MEDS: PANTOPRAZOLE 40 MG TABLET PO SCH (09:08)
[2021-02-05] MEDS: FLUTICASONE 50 MCG NASAL SPRAY 16 GM BOTTLE BOTH NARES SCH (09:09)
[2021-02-05] MEDS: CYANOCOBALAMIN 5000 MCG PO SCH (10:27)
[2021-02-05] MEDS: SIMVASTATIN 20 MG TABLET PO SCH (20:50)
[2021-02-05] MEDS: PREGABALIN 75 MG CAPSULE PO SCH (20:51)
[2021-02-06] MEDS: LEVOTHYROXINE 112 MCG TABLET PO SCH (05:44)
[2021-02-06] MEDS: IPRATROPIUM 500 MCG/2.5 ML NEB RESP TX SCH (07:09)
[2021-02-06] MEDS: INSULIN LISPRO 100 UNIT/ML SUBCUT SCH (07:57)
[2021-02-06] MEDS: BUDESONIDE/FORMOTEROL 160-4.5 INHALER 6 GM INH SCH (08:14)
[2021-02-06] MEDS: DESITIN 4OZ/NYSTATIN 15 GRAM MIXTURE PASTE TOP SCH (08:14)
[2021-02-06] MEDS: FLUTICASONE 50 MCG NASAL SPRAY 16 GM BOTTLE BOTH NARES SCH (08:14)
[2021-02-06] MEDS: cycloSPORINE OPH EMUL 1 VIAL BOTH EYES SCH (08:15)
[2021-02-06] MEDS: INSULIN GLARGINE 100 UNIT/ML SUBCUT SCH (08:15)
[2021-02-06] MEDS: POTASSIUM CHLORIDE 20 MEQ/15 ML UDCUP PO SCH (08:16)
[2021-02-06] MEDS: ASPIRIN EC 81 MG TABLET PO SCH (08:16)
[2021-02-06] MEDS: acetaZOLAMIDE 250 MG TABLET PO SCH (08:16)
[2021-02-06] MEDS: sitaGLIPtin 25 MG TABLET PO SCH (08:17)
[2021-02-06] MEDS: LEFLUNOMIDE 10 MG TABLET PO SCH (08:17)
[2021-02-06] MEDS: allopurinoL 300 MG TABLET PO SCH (08:17)
[2021-02-06] MEDS: MULTIVITAMIN (CENTRUM) TABLET PO SCH (08:17)
[2021-02-06] MEDS: FERROUS SULFATE 325 MG TABLET PO SCH (08:17)
[2021-02-06] MEDS: PANTOPRAZOLE 40 MG TABLET PO SCH (08:17)
[2021-02-06] MEDS: NITROFURANTOIN MACRO/MONO 100 MG CAPSULE PO SCH (08:17)
[2021-02-06] MEDS: MONTELUKAST 10 MG TABLET PO SCH (08:18)
[2021-02-06] MEDS: amLODIPine 5 MG TABLET PO SCH (08:18)
[2021-02-06] MEDS: TORSEMIDE 20 MG TABLET PO SCH (08:18)
[2021-02-06] MEDS: APIXABAN 5 MG TABLET PO SCH (08:19)
[2021-02-06] MEDS: MAGNESIUM OXIDE 400 MG TABLET PO SCH (08:22)
[2021-02-06] MEDS: CYANOCOBALAMIN 5000 MCG PO SCH (08:56)
[2021-02-06 11:18] VITALS: BP 152/65
== END 2021-02-06 11:15 ==
LOC: N.ED 20:22 → N.EDINP 20:22 → SUATTDRO 02-01 01:33 → N.EDINP 02-01 02:40 → N.3E 02-01 03:22
PROVIDERS: ADMIT Internal Medicine; ATTEND Internal Medicine